=== PATIENT | female | born 1935 | race Caucasian/White ===

== ENCOUNTER → 2016-12-05 | Outpatient (CLI) | payer BC ==
[~2016-12-05] MED LIST: CALCTAB5 PO; CRAN1CAP15 PO; EXM/25 PO; LEVO-217 PO; MULT-506 PO; OMEG10007 PO; ZNTT/150 PO; fosamax
[2016-12-05 10:01] LABS: BLOOD UREA NITROGEN 9 mg/dl (7-18); GLUCOSE 94 mg/dl (70-99)
[2016-12-05 10:02] LABS: ALT/SGPT 24 U/L (12-78); BUN/CREATININE RATIO 13.1 (10-20); CALCIUM 8.9 mg/dl (8.5-10.1); CARBON DIOXIDE 27 mmol/L (21-32); CHLORIDE 95 mmol/L (98-107); CHOLESTEROL 216 mg/dl (0-200); CREATININE 0.65 mg/dl (0.60-1.20); POTASSIUM 3.7 mmol/L (3.5-5.1); SODIUM 132 mmol/L (136-145)
[2016-12-05 10:12] LABS: ALB/GLOB RATIO 1.2 (0.9-2); ALKALINE PHOSPHATASE 69 U/L (45-117); AST/SGOT 26 U/L (15-37); CHOLESTEROL/HDL RATIO 2.4; HDL CHOLESTEROL 90 mg/dl; LDL CHOLESTEROL CALCULATED 109 mg/dl; TRIGLYCERIDES 86 mg/dl (0-150); VERY LOW DENSITY LIPOPROT CALC 17 mg/dl
== END | disposition home or self-care (01) ==
LOC: C.LAB1850 08:37
PROVIDERS: ATTEND Family Medicine
DX: E78.5 Hyperlipidemia, unspecified (principal); E03.9 Hypothyroidism, unspecified

== ENCOUNTER → 2017-06-17 | Outpatient (CLI) | payer BC ==
[2017-06-17 16:29] LABS: BLOOD UREA NITROGEN 12 mg/dl (7-18); BUN/CREATININE RATIO 18.9 (10-20); CARBON DIOXIDE 28 mmol/L (21-32); CHLORIDE 98 mmol/L (98-107); CREATININE 0.61 mg/dl (0.60-1.20); GLUCOSE 100 mg/dl (70-99); POTASSIUM 3.7 mmol/L (3.5-5.1); SODIUM 132 mmol/L (136-145)
== END | disposition home or self-care (01) ==
LOC: C.LAB1850 14:07
PROVIDERS: ATTEND Nurse Practitioner
DX: C50.912 Malignant neoplasm of unspecified site of left female breast (principal); E87.1 Hypo-osmolality and hyponatremia

== ENCOUNTER → 2017-07-29 | Outpatient (CLI) | payer BC ==
--- NOTE | 2017-07-30 07:58 | MAMMOGRAPHY REPORT ---
UNILATERAL RIGHT DIGITAL SCREENING MAMMOGRAM TOMOSYNTHESIS WITH CAD: 07/29/2017 CLINICAL HISTORY: Asymptomatic. Personal history of breast cancer. TECHNIQUE: Right breast tomosynthesis in addition to standard 2D mammography was performed. Current yumiko oseguera was also evaluated with a Computer Aided Detection (CAD) system. COMPARISON: Comparison is made to exams dated: 05/24/2015 mammogram, 07/25/2016 mammogram, 05/23/2014 mammogram, 05/18/2013 mammogram, 05/15/2012 mammogram, and 05/14/2011 mammogram - [facility] enter. BREAST COMPOSITION: The tissue of the right breast is heterogeneously dense, which may obscure small masses. FINDINGS: There are stable benign calcifications in the right breast. There is a stable ribbon-shap ed biopsy marker clip in the right breast. No new suspicious mass, architectural distortion or cluste r of microcalcifications is seen. IMPRESSION: ACR BI-RADS CATEGORY 2: BENIGN There is no mammographic evidence of malignancy. A 1 year screening mammogram is recommended. The pa tient will receive written notification of the results. Approximately 10% of breast cancers are not detected with mammography. A negative mammographic report should not delay biopsy if a clinically suggestive mass is present. Nathaly Bynum M.D. ay/:07/29/2017 15:33:29 [employer] Teacher: Latisha MUÑOZ(R)(M), [facility] letter sent: Normal 1/2 BI-RADS Code: ACR BI-RADS Category 2: Benign
== END | disposition home or self-care (01) ==
LOC: C.MAMM 10:05
PROVIDERS: ATTEND Nurse Practitioner
DX: Z12.31 Encounter for screening mammogram for malignant neoplasm of breast (principal); Z85.3 Personal history of malignant neoplasm of breast

== ENCOUNTER → 2017-10-22 | Outpatient (CLI) | payer BC ==
--- NOTE | 2017-10-22 14:54 | DIAGNOSTIC IMAGING REPORT ---
THORACIC SPINE 3 VIEWS ROUTINE CLINICAL HISTORY: Thoracic spine pain COMPARISON STUDY: 01/01/2013 FINDINGS: There is a thoracolumbar scoliosis. There is a stable mild to moderate T9 compression deformity. There is a minor T6 compression deformity which is also chronic. There is disc space calcification at the T5-6 level. IMPRESSION: Scoliosis. Old thoracic compression deformities. No acute fractures identified. Electronically signed by: Sharath Huang M.D. 10/22/2017 2:53 PM Dictated Date/Time: 10/22/2017 2:51 PM
--- NOTE | 2017-10-22 14:58 | DIAGNOSTIC IMAGING REPORT ---
L-SPINE MIN 4 VIEWS ROUTINE CLINICAL HISTORY: Lumbar back pain. COMPARISON: None FINDINGS: Abdominal surgical clips are noted. There is mild levoscoliosis of the lumbar spine. Vertebral body heights are maintained. There is no fracture or suspicious lesion within the lumbar spine by radiography. There is moderate disc space narrowing with osteophytosis and vacuum disc phenomenon at L5-S1. Old T10 moderate compression fracture is noted. IMPRESSION: 1. No lumbar spine fracture or subluxation. 2. Mild levoscoliosis of the lumbar spine. 3. Moderate to severe degenerative disc disease at L5-S1. Moderate multilevel facet arthrosis. 4. Old T10 compression fracture. Electronically signed by: Kleber Mckee M.D. 10/22/2017 2:57 PM Dictated Date/Time: 10/22/2017 2:52 PM
== END | disposition home or self-care (01) ==
LOC: C.RADPV 14:22
PROVIDERS: ATTEND Family Medicine
DX: M54.5 Low back pain (principal); M54.6 Pain in thoracic spine; M41.9 Scoliosis, unspecified

== ENCOUNTER 2024-03-30 10:59 | Observation (INO) ==
--- NOTE | 2024-03-30 11:14 | Emergency Department Note ---
Impression & Plan Fall, Contusion of hip, right, Back contusion, Right rib fracture ED Provider Note NAME: DEANA MAN AGE: 88 SEX: F : 1935 ARRIVES VIA: Ambulance INFORMANT: Patient, EMS ED PROVIDER(S): Ibrahima Pagan DO CHIEF COMPLAINT: Fall HPI: The patient is an 88-year-old female who suffers from dementia who presented to the emergency department for a fall. The patient had a fall from a standing position yesterday but this was unwitnessed. The nursing of staff found her on the floor. They think she may have fallen against the wall and hit her back. The patient initially had no complaints. She was able to ambulate yesterday but today she cannot sit forward or ambulate. There is concerned she may have pain in her right hip. She arrived via BLS. There is no reported head injury nausea or vomiting. The patient does not take blood thinners. ROS: See above HPI for pertinent positives & negatives. A total of 10 systems reviewed and were otherwise negative. PAST MEDICAL HISTORY: See Below PAST SURGICAL HISTORY: See Below FAMILY HISTORY: See Below SOCIAL HISTORY: See Below HOME MEDICATIONS: See Below ALLERGIES: See Below VITALS: See Below PHYSICAL EXAMINATION: GENERAL: The patient is awake and alert. She appears anxious and uncomfortable. She appears to be in pain EYES: The conjunctivae are clear. The pupils are round and reactive. EARS, NOSE, MOUTH AND THROAT: The nose is without any evidence of any deformity. NECK: The neck is nontender and supple. RESPIRATORY: Normal respiratory effort is noted there is no evidence of wheezing rhonchi or rales CARDIOVASCULAR: Regular rate and rhythm noted there no murmurs rubs or gallops normal S1 normal S2. GASTROINTESTINAL: The abdomen is soft. Abdomen is nontender. BACK: Lower lumbar tenderness was noted to palpation. Range of motion does appear intact. MUSCULOSKELETAL/EXTREMITIES: There is no gross deformity of either lower extremity. There is significant pain with range of motion testing of the right hip. SKIN: There is no obvious evidence of any rash. There are no petechiae, pallor or cyanosis noted. Pulses are symmetric in both feet. NEUROLOGIC: Patient is awake alert and oriented to person and place only. Strength was symmetric. MEDICAL DECISION MAKING: The patient is an 88-year-old female who presented the emergency department for an evaluation of right hip pain. The patient had an unwitnessed fall yesterday. She suffers from advanced dementia and was unable to give much history. She did appear to have significant pain especially with palpation of the lower back as well as range of motion testing of the right hip. Radiographic studies were obtained. The patient was treated with pain medication. I discussed patient's laboratory and radiographic studies with her and her family. Ultimately no definite fracture was noted on radiographic studies. There was a questionable area on the right hip but after CAT scan this was proven to not be a true fracture. The patient was able to ambulate but still has significant difficulty and pain with ambulation. This reason I will discuss his case with the on-call [facility] hospitalist. Triage Nursing notes reviewed. Prior medical records reviewed Vital Signs: reviewed and remarkable for no significant abnormalities Differential diagnosis: Fracture, dislocation, contusion, intra-abdominal, pneumothorax, intrathoracic, intracranial, neurologic, compartment syndrome, rhabdomyolysis, as well as other pathologies. ER treatment provided: See below Diagnostics interpreted by me: ECG: EKG was obtained in the emergency department. My interpretation is normal sinus rhythm at 75 bpm. There is no ectopy. There is no acute ST segment abnormalities noted. This was compared to a tracing from 2022. No changes were noted. Cardiac Monitoring: An order was placed for continuous cardiac monitoring. The monitor shows a rate of 71 bpm with sinus rhythm. Laboratory studies: As stated above and show below. Imaging studies: See below. Radiographic imaging was reviewed by myself Consultation(s): I discussed this case with Dr. Sims who is on-call for the [facility]ist group. Past Med/Surg History Problem List (Updated 03/30/24 @ 17:20 by Ibrahima Pagan DO) Right rib fracture (Acute) Back contusion (Acute) Contusion of hip, right (Acute) Fall (Acute) Ulcerative colitis (Chronic) Thoracic back pain Seasonal allergies Myalgia and myositis Lesion of lip Joint pain, knee Impacted cerumen of both ears Hyponatremia Fatigue Anemia Routine health maintenance (Chronic) Encounter for pre-operative examination (Acute) Low back pain Memory impairment Rectal bleeding Cerumen impaction Upper extremity weakness Physical deconditioning Impaired mobility and ADLs Osteoarthritis of shoulders, bilateral Impingement syndrome of right shoulder Impingement syndrome, shoulder, left Medical History Dementia Arthritis Trouble swallowing Barretts esophagus Benign positional vertigo Chronic reflux esophagitis Hyperlipidemia Hypothyroidism Osteoporosis Colon cancer (~2004) HX 2005/HX RESECTION Breast cancer (~2008) HX 2009/LEFT MASTECTOMY Surgical History History of endoscopy History of colonoscopy History of blepharoplasty History of colon surgery Part of colon removed History of mastectomy LEFT History of foot surgery Family History Aunt Breast cancer Other No pertinent family history Denies family history of Ovarian cancer Prostate cancer Myocardial infarction Colorectal cancer Social History Smoking Status: Unknown if ever smoked Second Hand Exposure: No; Do You Dip or Chew Tobacco: No; Hx Alcohol Use: No Hx Substance Use: No Preferred Language: Surinamese Communication Ability: Effective Communication Ability Comment: DAUGHTERZHOU DOES PAT PHONE INTERVIEW (POA)/PT HAS DEMENTIA Visual Impairment: Limited Hearing Ability: Normal Sr Account Executive Required: No Beliefs That Will Affect Care: None marital status: / Current Living Situation: Alone current occupational status: retired How many Children do You have: 3 Feels Safe at Home: Yes Childhood Exposure to Second-Hand Smoke: Yes Diet: regular caffeine: No during the past year weight has: remained stable Dental Care, Regularly: Yes Physical Activity Frequency: Daily Physical Activity Frequency Comment: Walking Seatbelt Use: always Sunscreen Use: Yes Assistive Devices: Other Allergies Allergies Allergy/AdvReac Type Severity Reaction Status Date / Time shellfish derived Allergy Unknown Unknown Verified 03/30/24 12:12 oxycodone AdvReac Unknown N&V Verified 03/30/24 12:12 Home Meds Home Medications Medication Instructions Recorded Confirmed escitalopram oxalate 5 mg tablet 5 mg PO DAILY 03/30/24 03/30/24 famotidine 20 mg tablet 20 mg PO DAILY 03/30/24 03/30/24 levothyroxine 75 mcg tablet 75 mcg PO DAILY 03/30/24 03/30/24 meloxicam 7.5 mg tablet 7.5 mg PO DAILY 03/30/24 03/30/24 omeprazole 20 mg capsule,delayed 20 mg PO DAILY 03/30/24 03/30/24 release Results & Data (ED) Vital Signs Vital Signs - 24 hr 03/30/24 11:23 03/30/24 11:24 03/30/24 11:53 Temperature 36.6 C Temperature Source Oral Pulse Rate 77 85 Pulse Rate [Left Apical] 71 Respiratory Rate 21 17 Respiratory Effort / Characteristics Non-Labored Spontaneous Non-Labored Spontaneous Respiratory Depth Normal Normal Respiratory Pattern Regular Regular Blood Pressure 146/81 H Blood Pressure [Right Arm] 140/76 Blood Pressure Mean 102 Blood Pressure Mean [Right Arm] 97 Pulse Oximetry 99 98 Oxygen Delivery Method Room Air Room Air Sepsis Recent Fever Within 48 Hours No Sepsis New/Unexplained Change in Mental Status N/A Sepsis Action Taken by Nursing No Action Required 03/30/24 12:00 03/30/24 12:42 03/30/24 13:30 Temperature Temperature Source Pulse Rate 71 68 Pulse Rate [Left Apical] Respiratory Rate 21 16 Respiratory Effort / Characteristics Respiratory Depth Respiratory Pattern Blood Pressure 127/72 Blood Pressure [Right Arm] 139/67 Blood Pressure Mean 90 Blood Pressure Mean [Right Arm] 91 Pulse Oximetry 94 96 Oxygen Delivery Method Room Air Room Air Sepsis Recent Fever Within 48 Hours Sepsis New/Unexplained Change in Mental Status Sepsis Action Taken by Nursing 03/30/24 13:54 03/30/24 13:57 03/30/24 15:18 Temperature Temperature Source Pulse Rate 71 71 Pulse Rate [Left Apical] Respiratory Rate 21 19 Respiratory Effort / Characteristics Respiratory Depth Respiratory Pattern Blood Pressure 128/81 Blood Pressure [Right Arm] Blood Pressure Mean 104 Blood Pressure Mean [Right Arm] Pulse Oximetry 100 98 Oxygen Delivery Method Room Air Room Air Sepsis Recent Fever Within 48 Hours Sepsis New/Unexplained Change in Mental Status Sepsis Action Taken by Nursing 03/30/24 15:27 03/30/24 16:00 03/30/24 16:30 Temperature Temperature Source Pulse Rate 87 79 77 Pulse Rate [Left Apical] Respiratory Rate 19 24 Respiratory Effort / Characteristics Respiratory Depth Respiratory Pattern Blood Pressure 110/68 115/66 Blood Pressure [Right Arm] Blood Pressure Mean 82 82 Blood Pressure Mean [Right Arm] Pulse Oximetry 98 Oxygen Delivery Method Room Air Sepsis Recent Fever Within 48 Hours Sepsis New/Unexplained Change in Mental Status Sepsis Action Taken by Skilled Nursing Medications Current Medication List: was personally reviewed by me Laboratory Data Attestation: I reviewed the patient's lab results. 03/30/24 11:16 03/30/24 11:16 Lab Results 03/30/24 Range/Units 11:16 WBC 9.58 (4.8-10.8) K/ul RBC 4.40 (4.20-5.40) M/uL Hgb 11.9 L (12.0-16.0) g/dl Hct 37.2 (37.0-47.0) % MCV 84.5 (80.0-100.0) fL MCH 27.0 (25.0-34.0) pg MCHC 32.0 (32.0-36.0) g/dL RDW Std Deviation 40.3 (36.4-46.3) fL RDW Coeff of [place] 13.1 (11.5-14.5) % Plt Count 356 (130-400) K/uL MPV 9.7 (9.4-12.4) fL Immature Gran % (Auto) 0.3 % Neut % (Auto) 58.3 % Lymph % (Auto) 30.3 % Pope % (Auto) 8.6 % Eos % (Auto) 2.0 % Baso % (Auto) 0.5 % Neut # (Auto) 5.59 (1.40-6.50) K/uL Lymph # (Auto) 2.90 (1.20-3.40) K/uL Pope # (Auto) 0.82 H (0.11-0.59) K/uL Eos # (Auto) 0.19 (0.00-0.50) K/uL Baso # (Auto) 0.05 (0.00-0.20) K/uL Immature Gran # (Auto) 0.03 (0.01-0.20) K/uL PT 10.8 (9.0-12.0) Seconds INR 1.0 (0.9-1.1) APTT 27 (21-31) Seconds PTT Ratio 1.0 Sodium 135 L (136-145) mmol/L Potassium 4.0 (3.5-5.1) mmol/L Chloride 101 (98-107) mmol/L Carbon Dioxide 25 (21-32) mmol/L Anion Gap 9 (3-11) BUN 18 (6-23) mg/dl Creatinine 0.68 (0.6-1.2) mg/dl Est Cr Clr Drug Dosing Not Reportable Est GFR ( Amer) 91.8 ml/min Est GFR (Non-Af Amer) 79.2 ml/min BUN/Creatinine Ratio 26.5 H (10-20) Glucose 106 H (70-99(Fasting)) mg/dl Calcium 9.1 (8.6-10.3) mg/dl Total Bilirubin 0.5 (0.2-1.0) mg/dl AST 16 (13-39) U/L ALT 8 (7-52) U/L Alkaline Phosphatase 96 (34-104) U/L Troponin I High Sens 11.0 (0-14) pg/ml Total Protein 7.2 (6.0-8.3) gm/dl Albumin 4.1 (3.4-5.0) gm/dl Globulin 3.1 (2.5-4.0) gm/dl Albumin/Globulin Ratio 1.3 (0.9-2) Lipase 33 (11-82) U/L Administered Medications Discontinued Medications Acetaminophen (Acetaminophen 500 Mg Tab) 1,000 mg PO NOW STA Stop: 03/30/24 14:38 Last Admin: 03/30/24 15:12 Dose: 1,000 mg Documented By: [facility] Fentanyl Citrate (Fentanyl Citrate Pf 100 Mcg/2 Ml Vial) 25 mcg IV Q15M PRN PRN Reason: Pain Stop: 04/13/24 11:07 Last Admin: 03/30/24 11:48 Dose: 25 mcg Documented By: [facility] Lidocaine (Lidocaine 5% 1 Patch) 1 patch TD NOW STA Stop: 03/30/24 14:38 Last Admin: 03/30/24 15:12 Dose: 1 patch Documented By: [facility] Ondansetron HCl (Ondansetron Inj 2 Mg/Ml 2 Ml Vial) 4 mg IV NOW STA Stop: 03/30/24 11:09 Last Admin: 03/30/24 11:48 Dose: 4 mg Documented By: [facility] Imaging Data Attestation: I personally reviewed and interpreted this imaging study as follows: My Impression: 1 view chest x-ray was obtained in the emergency department. My interpretation is no free air or definite infiltrate, final report below. CT of the brain was obtained in the emergency department. My interpretation is no intracranial hemorrhage or mass effect, final report below. X-ray of the right hip and pelvis was obtained. My interpretation is questionable fracture of the right subcapital region on the right hip, final report below. Radiologist's Impression: Cervical Spine CT 03/30/24 11:08 CT SCAN OF THE CERVICAL SPINE CLINICAL HISTORY: Fall. COMPARISON STUDY: Cervical spine radiographs dated 02/12/2022. TECHNIQUE: CT scan of the cervical spine is performed from the skull base to the upper thoracic spine. Images are reviewed in the axial, sagittal, and coronal planes. IV contrast was not administered for this examination. A dose lowering technique was utilized adhering to the principles of ALARA. CT DOSE: 2197.14 mGy.cm FINDINGS: Skeletal structures: The skeletal structures are osteopenic. There is no evidence of fracture or subluxation involving the cervical spine. Vertebral body height and alignment are maintained. There is straightening of the cervical lordosis. Anterior osteophytes are seen throughout. The odontoid process and lateral masses are intact. The atlantoaxial articulation is preserved no significant advanced productive degenerative change. The spinous processes appear intact. There is moderate multilevel cervical spondylosis. Uncovertebral and facet arthropathy contribute to neural foraminal narrowing at several levels. Intervertebral discs: There is moderate to severe disc space narrowing at C5-C6 and C6-C7. End plate sclerosis is noted C5-C6. Mild narrowing is seen at the remaining cervical levels. Central canal: Widely patent. Soft tissues: The prevertebral and paraspinous soft tissues are within normal limits. There is moderate atherosclerotic calcification of the left carotid bulb. Calvarium: The visualized calvarium at the skull base appears intact. Brain parenchyma: Partially visualized brain parenchyma at the skull base is within normal limits. Sinuses and mastoids: The visualized paranasal sinuses are clear. The mastoid air cells are well pneumatized. Lung apices: Clear as visualized. IMPRESSION: 1. There is no evidence of fracture or subluxation involving the cervical spine. 2. Osteopenia and spondylotic change as above. ACT 112: Negative or not required by law. Electronically signed by: Luis F Regan M.D. 03/30/2024 12:01 PM Chest X-Ray 03/30/24 11:08 XR chest 1V portable CLINICAL HISTORY: Chest pain, nonspecific TECHNIQUE: Single frontal radiograph of the chest was obtained. Comparison: Comparison is made to chest radiograph 02/10/2023 FINDINGS: No lines and tubes are seen. The cardiomediastinal silhouette is normal. Lungs are underinflated but clear. No evidence of pleural effusion or pneumothorax. IMPRESSION: No acute chest disease. ACT 112: Negative or not required by law. Electronically signed by: Gordon Evans M.D. 03/30/2024 11:[address] 03/30/24 11:08 CT head/brain wo con CLINICAL HISTORY: fall Technique: Contiguous axial CT images of the head were acquired from the base of the skull to the vertex without intravenous contrast administration. Images were viewed in brain, subdural and bone windows. Automated dose lowering techniques and/or adjustment according to patient size were utilized for this exam. Comparison: Comparison is made to CT head 01/25/2019 Findings: Areas of decreased attenuation are present in the periventricular and subcortical white matter bilaterally consistent with small vessel ischemic disease. Generalized cerebral atrophy with commensurate enlargement of the ventricles, sulci, and cisterns is also present. There is no acute intracranial hemorrhage or evidence of acute territorial infarction. No shift of the midline structures, mass effect, or extra-axial abnormalities are shown. Atherosclerotic calcifications are present in the intracranial segments of the internal carotid arteries. Imaged portions of the paranasal sinuses and mastoid air cells are clear. The orbits appear normal. There are no acute fractures of the calvaria or scalp swelling. Impression: No acute intracranial hemorrhage, no evidence of acute territorial infarction or other acute intracranial disease process. ACT 112: Negative or not required by law. Electronically signed by: Gordon Evans M.D. 03/30/2024 11:53 AM Hip/Pelvis X-Ray 03/30/24 11:08 XR hip RT 2V w pelvis CLINICAL HISTORY: Fall. COMPARISON: Pelvis and right hip radiographs February 15, 2019. FINDINGS: Sacroiliac joints and symphysis pubis are intact. There is no proximal left femoral fracture. There is slight foreshortening of the right femoral neck. Possible cortical irregularity of the right femoral neck: Crosstable lateral projection is noted. IMPRESSION: Slight foreshortening of the right femoral neck. This is likely technical. However, a right hip CT is recommended to exclude a nondisplaced impacted right femoral neck fracture. ACT 112: Negative or not required by law. Electronically signed by: Kleber Mckee M.D. 03/30/2024 11:[address] 03/30/24 11:08 CT lumbar spine wo con CLINICAL HISTORY: fall TECHNIQUE: Multidetector row helical CT of the lumbar spine was performed without administration of intravenous contrast. Coronal and sagittal reformations were obtained. Automated dose lowering techniques and/or adjustment according to patient size were utilized for this exam. Comparison: Comparison is made to lumbar spine radiographs 07/11/2020 FINDINGS: For counting purposes, the last complete intervertebral disc space is considered L5-S1. No acute fractures are identified. Vertebral body heights and disk spaces are well maintained. Vertebral body alignment is within normal limits. Hypodense lesions and cysts are seen in the right greater than left kidney compatible with cysts and hemorrhagic/proteinaceous cysts. Vascular calcifications are seen. IMPRESSION: No evidence of acute bony injury. ACT 112: Negative or not required by law. Electronically signed by: Gordon Evans M.D. 03/30/2024 11:[address] 03/30/24 11:33 CT hip RT wo con CLINICAL HISTORY: fall TECHNIQUE: Multidetector row helical CT of the right hip was performed without intravenous contrast. Coronal and sagittal reformations were obtained. Automated dose lowering techniques and/or adjustment according to patient size were utilized for this examination. CT DOSE: 411.27 mGy.cm Comparison: Right hip radiograph 11/30/2023 FINDINGS: The osseous structures are without fracture or dislocation. Degenerative changes are seen in the joints. No joint effusion is seen. The soft tissues are unremarkable. IMPRESSION: No acute abnormality. Previously noted foreshortening was likely artifactual. ACT 112: Negative or not required by law. Electronically signed by: Gordon Evans M.D. 03/30/2024 1:04 PM Abdomen/Pelvis CT 03/30/24 14:48 CT OF THE ABDOMEN AND PELVIS WITHOUT CONTRAST CLINICAL HISTORY: Fall, right sided rib/back pain COMPARISON STUDY: Pelvis and right hip radiographs performed earlier today. Right hip CT performed earlier today. TECHNIQUE: Axial images of the abdomen and pelvis were obtained without IV contrast. Images were reviewed in the axial, sagittal, and coronal planes. Automated exposure control was utilized for the study. A dose lowering technique was utilized adhering to the principles of ALARA. FINDINGS: Please note that the chest CT will be reported separately. Acute fractures of the posterior right seventh, eighth and ninth ribs are noted. The right ninth rib fracture is displaced. There is a trace right hemothorax. A lobulated subpleural 1.5 cm left lower lobe nodule on image 6 is present. Findings are better depicted on the chest CT which will be reported separately. There is a small hiatal hernia. No hemoperitoneum or pneumoperitoneum is present. Solid abdominal viscera suboptimally assessed by CT. No evidence for traumatic injury to the liver, spleen, adrenal glands, kidneys or pancreas. Hyperdense right renal lesions are suboptimally assessed on unenhanced CT but favor hyperdense cyst. There is no evidence for a bowel obstruction. Multifocal wall thickening of the ascending colon and descending colon is noted with minimal pericolonic stranding. There are numerous mildly enlarged pericolonic lymph nodes. These measure up to 1.3 x 0.9 cm. There are prominent mesenteric lymph nodes. No acute lumbar spine, pelvic or hip fracture is identified. IMPRESSION: 1. No acute traumatic findings within the abdomen or pelvis on unenhanced exam. 2. Acute fractures of the posterior right seventh, eighth and ninth ribs with a trace right hemothorax. 3. Lobulated subpleural 1.5 left lower lobe pulmonary nodule. This is indeterminate. A follow-up chest CT in 6 months is recommended. 4. Multifocal wall thickening of the colon, predominantly involving the ascending colon and descending colon with colonic stranding and enlarged pericolonic lymph nodes. Given long segment distribution, the findings may reflect a colitis. However, a neoplastic etiology could appear similar. A short- term follow-up CT of the abdomen and pelvis in one month is recommended. Alternatively, colonoscopy could be performed. ACT 112: Positive. There are findings on this exam that require communication between the performing entity and the patient following Patient Test Result Information Act ([place] Act 112) guidelines. Electronically signed by: Kleber Mckee M.D. 03/30/2024 4:[address] 03/30/24 14:48 CT chest diagnostic wo con, CT thoracic spine wo con CLINICAL HISTORY: Fall, right sided rib/back pain TECHNIQUE: Multidetector row helical CT of the chest was performed. Coronal and sagittal reformations were obtained. Automated dose lowering techniques and/or adjustment according to patient size were utilized for this exam. Dedicated images of the thoracic spine were obtained. CT DOSE: 1235.96 mGy.cm Comparison: None available at the time of this dictation. FINDINGS: Lungs and pleura: Atelectasis versus scarring is seen in the dependent portions of the lungs. Tree in bud nodules are in the right upper lobe and there is a cluster of nodules in the left lower lobe as well. Possible trace right hemothorax. Heart and pericardium: Heart size is normal. No pericardial effusion. Vessels: Mild atherosclerotic changes in the aorta and coronary arteries. Pulmonary trunk measures 31 mm in diameter. Mediastinum and lily: Subcentimeter lymph nodes are seen. Chest wall and lower neck: There is a 16 mm left thyroid nodule. Abdomen: For findings below the diaphragm, please refer to CT of the abdomen dated the same. Bones: Right seventh and eighth posterior rib fractures are seen. IMPRESSION: 1. Right posterior seventh and eighth rib fractures are seen with trace hemothorax. No pneumothorax or other acute abnormalities are seen. 2. Nodules are seen as above which may represent infectious/inflammatory process. ACT 112: Negative or not required by law. Electronically signed by: Gordon Evans M.D. 03/30/2024 4:[address] 03/30/24 14:48 CT chest diagnostic wo con, CT thoracic spine wo con CLINICAL HISTORY: Fall, right sided rib/back pain TECHNIQUE: Multidetector row helical CT of the chest was performed. Coronal and sagittal reformations were obtained. Automated dose lowering techniques and/or adjustment according to patient size were utilized for this exam. Dedicated images of the thoracic spine were obtained. CT DOSE: 1235.96 mGy.cm Comparison: None available at the time of this dictation. FINDINGS: Lungs and pleura: Atelectasis versus scarring is seen in the dependent portions of the lungs. Tree in bud nodules are in the right upper lobe and there is a cluster of nodules in the left lower lobe as well. Possible trace right hemothorax. Heart and pericardium: Heart size is normal. No pericardial effusion. Vessels: Mild atherosclerotic changes in the aorta and coronary arteries. Pulmonary trunk measures 31 mm in diameter. Mediastinum and lily: Subcentimeter lymph nodes are seen. Chest wall and lower neck: There is a 16 mm left thyroid nodule. Abdomen: For findings below the diaphragm, please refer to CT of the abdomen dated the same. Bones: Right seventh and eighth posterior rib fractures are seen. IMPRESSION: 1. Right posterior seventh and eighth rib fractures are seen with trace hemothorax. No pneumothorax or other acute abnormalities are seen. 2. Nodules are seen as above which may represent infectious/inflammatory process. ACT 112: Negative or not required by law. Electronically signed by: Gordon Evans M.D. 03/30/2024 4:31 PM Discharge Plan Visit Data Chief Complaint: Fall ED Provider: Ibrahima Pagan Discharge Problem: Fall, Contusion of hip, right, Back contusion, Right rib fracture Patient Disposition: Being Evaluated by Hospitalist Discharge Instructions Interventions: ED Discharge Assessment Last Done: 03/30/24 16:42 Forms Stand Alone Forms: My [facility] TapFwd Prescriptions Prescriptions: No Action levothyroxine 75 mcg tablet 75 mcg PO DAILY meloxicam 7.5 mg tablet 7.5 mg PO DAILY famotidine 20 mg tablet 20 mg PO DAILY omeprazole 20 mg capsule,delayed release(DR/EC) 20 mg PO DAILY escitalopram oxalate 5 mg tablet 5 mg PO DAILY Referrals Referrals: Valentina Shaffer MD [Primary Care Provider] - Discharge Problem: Fall Qualifiers: Encounter type: initial encounter Qualified Code(s): W19.XXXA - Unspecified fall, initial encounter Contusion of hip, right Qualifiers: Encounter type: initial encounter Qualified Code(s): S70.01XA - Contusion of right hip, initial encounter Back contusion Qualifiers: Encounter type: initial encounter Laterality: unspecified laterality Qualified Code(s): S20.229A - Contusion of unspecified back wall of thorax, initial encounter Right rib fracture Qualifiers: Encounter type: initial encounter Rib fracture type: multiple ribs Fracture type: closed Qualified Code(s): S22.41XA - Multiple fractures of ribs, right side, initial encounter for closed fracture
--- NOTE | 2024-03-30 11:33 | XRay Report ---
XR hip RT 2V w pelvis CLINICAL HISTORY: Fall. COMPARISON: Pelvis and right hip radiographs February 15, 2019. FINDINGS: Sacroiliac joints and symphysis pubis are intact. There is no proximal left femoral fractu re. There is slight foreshortening of the right femoral neck. Possible cortical irregularity of the r ight femoral neck: Crosstable lateral projection is noted. IMPRESSION: Slight foreshortening of the right femoral neck. This is likely technical. However, a rig ht hip CT is recommended to exclude a nondisplaced impacted right femoral neck fracture. ACT 112: Negative or not required by law. Electronically signed by: Kleber Mckee M.D. 03/30/2024 11:31 AM
--- NOTE | 2024-03-30 11:40 | XRay Report ---
XR chest 1V portable CLINICAL HISTORY: Chest pain, nonspecific TECHNIQUE: Single frontal radiograph of the chest was obtained. Comparison: Comparison is made to chest radiograph 02/10/2023 FINDINGS: No lines and tubes are seen. The cardiomediastinal silhouette is normal. Lungs are underinflated but clear. No evidence of pleural effusion or pneumothorax. IMPRESSION: No acute chest disease. ACT 112: Negative or not required by law. Electronically signed by: Gordon Evans M.D. 03/30/2024 11:39 AM
[2024-03-30 11:41] LABS: Basophils # (auto) 0.05 K/uL (0.00-0.20); Basophils % (auto) 0.5 %; Eosinophils # (auto) 0.19 K/uL (0.00-0.50); Hematocrit (blood only) 37.2 % (37.0-47.0); Hemoglobin 11.9 g/dl (12.0-16.0); Immature Granulocytes # (auto) 0.03 K/uL (0.01-0.20); Immature Granulocytes % (auto) 0.3 %; Lymphocytes % (auto) 30.3 %; Mean Corpuscular Volume 84.5 fL (80.0-100.0); Mean Platelet Volume 9.7 fL (9.4-12.4); Monocytes # (auto) 0.82 K/uL (0.11-0.59); Monocytes % (auto) 8.6 %; Neutrophils # (auto) 5.59 K/uL (1.40-6.50); Neutrophils % (auto) 58.3 %; Platelet Count 356 K/uL (130-400); RDW Coefficient of Variation 13.1 % (11.5-14.5); RDW Standard Deviation 40.3 fL (36.4-46.3); White Blood Count 9.58 K/ul (4.8-10.8)
[2024-03-30] MEDS: fentaNYL citrate PF 100 MCG/2 ML VIAL IV PRN (11:48)
[2024-03-30] MEDS: ONDANSETRON INJ 2 MG/ML 2 ML VIAL IV STA (11:48)
--- NOTE | 2024-03-30 11:53 | CT Scan Report ---
CT lumbar spine wo con CLINICAL HISTORY: fall TECHNIQUE: Multidetector row helical CT of the lumbar spine was performed without administration of i ntravenous contrast. Coronal and sagittal reformations were obtained. Automated dose lowering techniq ues and/or adjustment according to patient size were utilized for this exam. Comparison: Comparison is made to lumbar spine radiographs 07/11/2020 FINDINGS: For counting purposes, the last complete intervertebral disc space is considered L5-S1. No acute fractures are identified. Vertebral body heights and disk spaces are well maintained. Verteb ral body alignment is within normal limits. Hypodense lesions and cysts are seen in the right greater than left kidney compatible with cysts and hemorrhagic/proteinaceous cysts. Vascular calcifications are seen. IMPRESSION: No evidence of acute bony injury. ACT 112: Negative or not required by law. Electronically signed by: Gordon Evans M.D. 03/30/2024 11:52 AM
--- NOTE | 2024-03-30 11:54 | CT Scan Report ---
CT head/brain wo con CLINICAL HISTORY: fall Technique: Contiguous axial CT images of the head were acquired from the base of the skull to the nilam temi without intravenous contrast administration. Images were viewed in brain, subdural and [facility]. Automated dose lowering techniques and/or adjustment according to patient size were utilized for this exam. Comparison: Comparison is made to CT head 01/25/2019 Findings: Areas of decreased attenuation are present in the periventricular and subcortical white matter bilate rally consistent with small vessel ischemic disease. Generalized cerebral atrophy with commensurate e nlargement of the ventricles, sulci, and cisterns is also present. There is no acute intracranial hem orrhage or evidence of acute territorial infarction. No shift of the midline structures, mass effect, or extra-axial abnormalities are shown. Atherosclerotic calcifications are present in the intracran ial segments of the internal carotid arteries. Imaged portions of the paranasal sinuses and mastoid air cells are clear. The orbits appear normal. There are no acute fractures of the calvaria or scalp swelling. Impression: No acute intracranial hemorrhage, no evidence of acute territorial infarction or other acute intracra nial disease process. ACT 112: Negative or not required by law. Electronically signed by: Gordon Evans M.D. 03/30/2024 11:53 AM
[2024-03-30 12:04] LABS: Alanine Aminotransferase 8 U/L (7-52); Albumin Globulin Ratio 1.3 (0.9-2); Albumin Level 4.1 gm/dl (3.4-5.0); Alkaline Phosphatase 96 U/L (34-104); Anion Gap 9 (3-11); Aspartate Aminotransferase 16 U/L (13-39); BUN Creatinine Ratio 26.5 (10-20); Bilirubin,Total 0.5 mg/dl (0.2-1.0); Blood Urea Nitrogen 18 mg/dl (6-23); Calcium 9.1 mg/dl (8.6-10.3); Carbon Dioxide 25 mmol/L (21-32); Chloride 101 mmol/L (98-107); Est GFR (African American) 91.8 ml/min; Est GFR (Non-African American) 79.2 ml/min; Globulin 3.1 gm/dl (2.5-4.0); Glucose 106 mg/dl (70-99(Fasting)); Lipase 33 U/L (11-82); Sodium 135 mmol/L (136-145); Total Protein 7.2 gm/dl (6.0-8.3)
--- NOTE | 2024-03-30 12:04 | CT Scan Report ---
CT SCAN OF THE CERVICAL SPINE CLINICAL HISTORY: Fall. COMPARISON STUDY: Cervical spine radiographs dated 02/12/2022. TECHNIQUE: CT scan of the cervical spine is performed from the skull base to the upper thoracic spine . Images are reviewed in the axial, sagittal, and coronal planes. IV contrast was not administered fo r this examination. A dose lowering technique was utilized adhering to the principles of ALARA. CT DOSE: 2197.14 mGy.cm FINDINGS: Skeletal structures: The skeletal structures are osteopenic. There is no evidence of fracture or subl uxation involving the cervical spine. Vertebral body height and alignment are maintained. There is s traightening of the cervical lordosis. Anterior osteophytes are seen throughout. The odontoid process and lateral masses are intact. The atlantoaxial articulation is preserved no significant advanced pr oductive degenerative change. The spinous processes appear intact. There is moderate multilevel cervi albert spondylosis. Uncovertebral and facet arthropathy contribute to neural foraminal narrowing at pradip ral levels. Intervertebral discs: There is moderate to severe disc space narrowing at C5-C6 and C6-C7. End plate sclerosis is noted C5-C6. Mild narrowing is seen at the remaining cervical levels. Central canal: Widely patent. Soft tissues: The prevertebral and paraspinous soft tissues are within normal limits. There is modera te atherosclerotic calcification of the left carotid bulb. Calvarium: The visualized calvarium at the skull base appears intact. Brain parenchyma: Partially visualized brain parenchyma at the skull base is within normal limits. Sinuses and mastoids: The visualized paranasal sinuses are clear. The mastoid air cells are well pneu matized. Lung apices: Clear as visualized. IMPRESSION: 1. There is no evidence of fracture or subluxation involving the cervical spine. 2. Osteopenia and spondylotic change as above. ACT 112: Negative or not required by law. Electronically signed by: Luis F Regan M.D. 03/30/2024 12:01 PM
[2024-03-30 12:07] LABS: Partial Thromboplastin Time 27 Seconds (21-31); Prothrombin Time 10.8 Seconds (9.0-12.0)
--- NOTE | 2024-03-30 12:45 | Electrocardiogram Report ---
Test Reason : Blood Pressure : / mmHG Vent. Rate : 075 BPM Atrial Rate : 075 BPM P-R Int : 158 ms QRS Dur : 076 ms QT Int : 414 ms P-R-T Axes : 069 048 068 degrees QTc Int : 462 ms Normal sinus rhythm Normal ECG When compared with ECG of 10-FEB-2023 17:50, Premature supraventricular complexes are no longer Present Confirmed by Mejia French ([id number]) on 03/30/2024 12:44:51 PM Referred By: REFERRED SELF Confirmed By:Mejia French
--- NOTE | 2024-03-30 13:07 | CT Scan Report ---
CT hip RT wo con CLINICAL HISTORY: fall TECHNIQUE: Multidetector row helical CT of the right hip was performed without intravenous contrast. Coronal and sagittal reformations were obtained. Automated dose lowering techniques and/or adjustment according to patient size were utilized for this examination. CT DOSE: 411.27 mGy.cm Comparison: Right hip radiograph 11/30/2023 FINDINGS: The osseous structures are without fracture or dislocation. Degenerative changes are seen in the join ts. No joint effusion is seen. The soft tissues are unremarkable. IMPRESSION: No acute abnormality. Previously noted foreshortening was likely artifactual. ACT 112: Negative or not required by law. Electronically signed by: Gordon Evans M.D. 03/30/2024 1:04 PM
--- NOTE | 2024-03-30 14:56 | History & Physical Report ---
Date of Service March 30, 2024 Assessment & Plan (1) Back contusion: Plan: Assessment: 1. Moderate to severe back pain status post fall. The patient had negative CTs of the head, cervical spine, lumbar spine, hip, and plain film x-rays of the chest-all of which were negative for acute injury. However as described above the patient's pain appears to be posterior rib regions 5 through [address] of the chest abdomen pelvis and thoracic spine. Those tests been ordered stat and are pending at the time of this dictation. Will consult PT and OT pending CAT scan results. Falls precautions. 2. Dementia fairly advanced. 3. History of ulcerative colitis with no evidence of flare. 4. Osteoarthritis. 5. Depression. 6. GERD with a history of Hernandez's esophagus. 7. History of hypothyroidism. Plan: As discussed above. Please refer to orders for further planning. Will use some lidocaine patch and acetaminophen now for pain control we will add some oral oxycodone if needed. We will try to avoid narcotics if possible given the patient's memory impairment. History of Present Illness Chief Complaint: Back pain, status post fall yesterday. Primary Care Provider: Valentina Shaffer MD This is an 88-year-old female who [facility] at a [facility] in a dementia unit. She apparently had a fall backwards from a standing position yesterday. She was able to ambulate somewhat yesterday typically ambulates independently. Family at the bedside. However today only take 1-2 steps with two-person assist and wheeled walker. She was sent to the ER from the [facility] for further evaluation and treatment initial reports was with right hip pain. The patient had plain film x-rays of the chest, CAT scans of the head and cervical spine lumbar spine and right hip. All of the symptoms were negative for acute findings. We are called admit the patient for further evaluation and treatment for refractory pain. The patient had IV fentanyl and IV Zofran in the ER. The patient is accompanied by her 2 daughters at the bedside at the time of my evaluation they report that they are code power of civil attorney's. They confirm his CODE STATUS is a DO NOT RESUSCITATE. On my evaluation as described on the physical exam this patient's pain is in the right mid rib region from approximately posterior ribs 5 through 10. It is reproducible with palpation. When I sit her up to auscultate her posterior lung mc she shakes with severe pain and becomes tearful and again this is partially reproducible with palpation with no midline tenderness. Regarding the stat CTs of the thoracic spine, chest, and the abdomen pelvis. Concern for occult rib injury on the right posterior Allergies Allergy/AdvReac Type Severity Reaction Status Date / Time shellfish derived Allergy Unknown Unknown Verified 03/30/24 12:12 oxycodone AdvReac Unknown N&V Verified 03/30/24 12:12 Home Medications Medication Instructions Recorded Confirmed Type escitalopram oxalate 5 mg tablet 5 mg PO DAILY 03/30/24 03/30/24 History famotidine 20 mg tablet 20 mg PO DAILY 03/30/24 03/30/24 History levothyroxine 75 mcg tablet 75 mcg PO DAILY 03/30/24 03/30/24 History meloxicam 7.5 mg tablet 7.5 mg PO DAILY 03/30/24 03/30/24 History omeprazole 20 mg capsule,delayed 20 mg PO DAILY 03/30/24 03/30/24 History release Past Med/Surg History Problem List (Updated 03/30/24 @ 14:37 by Ibrahima Pagan DO) Back contusion (Acute) Contusion of hip, right (Acute) Fall (Acute) Ulcerative colitis (Chronic) Thoracic back pain Seasonal allergies Myalgia and myositis Lesion of lip Joint pain, knee Impacted cerumen of both ears Hyponatremia Fatigue Anemia Routine health maintenance (Chronic) Encounter for pre-operative examination (Acute) Low back pain Memory impairment Rectal bleeding Cerumen impaction Upper extremity weakness Physical deconditioning Impaired mobility and ADLs Osteoarthritis of shoulders, bilateral Impingement syndrome of right shoulder Impingement syndrome, shoulder, left Medical History Dementia Arthritis Trouble swallowing Barretts esophagus Benign positional vertigo Chronic reflux esophagitis Hyperlipidemia Hypothyroidism Osteoporosis Colon cancer (~2004) HX 2005/HX RESECTION Breast cancer (~2008) HX 2009/LEFT MASTECTOMY Surgical History History of endoscopy History of colonoscopy History of blepharoplasty History of colon surgery Part of colon removed History of mastectomy LEFT History of foot surgery Family History Aunt Breast cancer Other No pertinent family history Denies family history of Ovarian cancer Prostate cancer Myocardial infarction Colorectal cancer Social History Smoking Status: Unknown if ever smoked Second Hand Exposure: No; Do You Dip or Chew Tobacco: No; Hx Alcohol Use: No Hx Substance Use: No Preferred Language: Kyrgyz Communication Ability: Effective Communication Ability Comment: DAUGHTERZHOU DOES PAT PHONE INTERVIEW (POA)/PT HAS DEMENTIA Visual Impairment: Limited Hearing Ability: Normal Design Sales Consultant Required: No Beliefs That Will Affect Care: None marital status: / Current Living Situation: Alone current occupational status: retired How many Children do You have: 3 Feels Safe at Home: Yes Childhood Exposure to Second-Hand Smoke: Yes Diet: regular caffeine: No during the past year weight has: remained stable Dental Care, Regularly: Yes Physical Activity Frequency: Daily Physical Activity Frequency Comment: Walking Seatbelt Use: always Sunscreen Use: Yes Assistive Devices: Other Review of Systems Review of Systems: A 10 point review of system was obtained and unless otherwise stated here or in history of present illness are negative and noncontributory to chief complaint. Physical Exam Physical Exam: In General: In general this is a pleasant 88-year-old female who is alert and oriented to person only which is her baseline. She is accompanied by her 2 daughters at the time of my exam. While at rest and laying flat the patient is fairly comfortable. However she has severe pain with trying to sit forward for lung auscultation as discussed above. This pain is in the posterior rib region again approximately ribs 5 through 10. Partially reproducible with palpation. There is no midline thoracic spine tenderness however. HEENT: Normocephalic atraumatic pupils are equal round and reactive to light bilaterally. No scleral icterus no conjunctival injection external auditory canals are patent septum is in the midline nose is without discharge oral mucosa is pink and moist without lesion. NECK: Supple no rigidity no lymphadenopathy no thyromegaly no carotid bruits no JVD no masses. HEART: Regular rate and rhythm I do not appreciate any ectopy or rub. No murmur. LUNGS: Clear to auscultation bilaterally and anteriorly with no evidence of adventitious sounds/wheezes rales or rhonchi. ABDOMEN: Soft nontender, no rebound, no peritoneal signs, positive bowel sounds, no appreciable organomegaly. EXTREMITIES: Intact, no peripheral cyanosis, clubbing or edema. no pathological reflexes. NEUROLOGICAL: Cranial nerves II through XII are grossly intact with no focal deficit elicited upon examination. No tremor. Results & Data Results & Data Vital Signs (Past 12 Hours) Vital Signs Temp Pulse Pulse Resp BP BP Pulse Ox 03/30/24 13:54 71 21 100 03/30/24 13:30 139/67 03/30/24 12:42 68 16 96 03/30/24 12:00 71 21 127/72 94 03/30/24 11:53 71 17 140/76 98 03/30/24 11:24 85 03/30/24 11:23 36.6 C 77 21 146/81 H 99 O2 Del Method 03/30/24 13:54 Room Air 03/30/24 13:30 03/30/24 12:42 Room Air 03/30/24 12:00 Room Air 03/30/24 11:53 Room Air 03/30/24 11:24 03/30/24 11:23 Room Air Code Status & VTE Plan Code Status DO NOT RESUSCITATE. I personally discussed with the patient's 2 daughters at the bedside who reported being called power of civil attorney's and they confirmed a DNR status. VTE Prophylaxis Plan VTE Prophylaxis will be ordered: Yes PG Care Time/CCT Total # of Minutes Spent Total Time Spent with Patient: Total time spent is greater than 50% in coordination of care (as documented) at patient's floor/unit and/or counseling patient: Coding Level of Care Code 37502 INT INP/OBS CARE 3/75MIN Diagnoses Back contusion S20.229A Encounter type: initial encounter Laterality: unspecified laterality (1) Back contusion Encounter type: initial encounter Laterality: unspecified laterality Qualified Code(s): S20.229A - Contusion of unspecified back wall of thorax, initial encounter
[2024-03-30] MEDS: ACETAMINOPHEN 500 MG TAB PO STA (15:12)
[2024-03-30] MEDS: LIDOCAINE 5% 1 PATCH TD STA (15:12)
--- NOTE | 2024-03-30 16:22 | CT Scan Report ---
CT OF THE ABDOMEN AND PELVIS WITHOUT CONTRAST CLINICAL HISTORY: Fall, right sided rib/back pain COMPARISON STUDY: Pelvis and right hip radiographs performed earlier today. Right hip CT performed ea ier today. TECHNIQUE: Axial images of the abdomen and pelvis were obtained without IV contrast. Images were revi ewed in the axial, sagittal, and coronal planes. Automated exposure control was utilized for the jayant dy. A dose lowering technique was utilized adhering to the principles of ALARA. FINDINGS: Please note that the chest CT will be reported separately. Acute fractures of the posterior right seventh, eighth and ninth ribs are noted. The right ninth rib fracture is displaced. There is a trace right hemothorax. A lobulated subpleural 1.5 cm left lower lobe nodule on image 6 is present. Findings are better depicted on the chest CT which will be reported separately. There is a small hia daniele hernia. No hemoperitoneum or pneumoperitoneum is present. Solid abdominal viscera suboptimally as sessed by CT. No evidence for traumatic injury to the liver, spleen, adrenal glands, kidneys or pancr eas. Hyperdense right renal lesions are suboptimally assessed on unenhanced CT but favor hyperdense c yst. There is no evidence for a bowel obstruction. Multifocal wall thickening of the ascending colon and descending colon is noted with minimal pericolonic stranding. There are numerous mildly enlarged pericolonic lymph nodes. These measure up to 1.3 x 0.9 cm. There are prominent mesenteric lymph nodes . No acute lumbar spine, pelvic or hip fracture is identified. IMPRESSION: 1. No acute traumatic findings within the abdomen or pelvis on unenhanced exam. 2. Acute fractures of the posterior right seventh, eighth and ninth ribs with a trace right hemothora x. 3. Lobulated subpleural 1.5 left lower lobe pulmonary nodule. This is indeterminate. A follow-up ches t CT in 6 months is recommended. 4. Multifocal wall thickening of the colon, predominantly involving the ascending colon and descendin g colon with colonic stranding and enlarged pericolonic lymph nodes. Given long segment distribution, the findings may reflect a colitis. However, a neoplastic etiology could appear similar. A short-ter m follow-up CT of the abdomen and pelvis in one month is recommended. Alternatively, colonoscopy coul d be performed. ACT 112: Positive. There are findings on this exam that require communication between the performing entity and the patient following Patient Test Result Information Act ([place] Act 112) guidelines. Electronically signed by: Kleber Mckee M.D. 03/30/2024 4:21 PM
--- NOTE | 2024-03-30 16:32 | CT Scan Report ---
CT chest diagnostic wo con, CT thoracic spine wo con CLINICAL HISTORY: Fall, right sided rib/back pain TECHNIQUE: Multidetector row helical CT of the chest was performed. Coronal and sagittal reformations were obtained. Automated dose lowering techniques and/or adjustment according to patient size were u tilized for this exam. Dedicated images of the thoracic spine were obtained. CT DOSE: 1235.96 mGy.cm Comparison: None available at the time of this dictation. FINDINGS: Lungs and pleura: Atelectasis versus scarring is seen in the dependent portions of the lungs. Tree in bud nodules are in the right upper lobe and there is a cluster of nodules in the left lower lobe as well. Possible trace right hemothorax. Heart and pericardium: Heart size is normal. No pericardial effusion. Vessels: Mild atherosclerotic changes in the aorta and coronary arteries. Pulmonary trunk measures 31 mm in diameter. Mediastinum and lily: Subcentimeter lymph nodes are seen. Chest wall and lower neck: There is a 16 mm left thyroid nodule. Abdomen: For findings below the diaphragm, please refer to CT of the abdomen dated the same. Bones: Right seventh and eighth posterior rib fractures are seen. IMPRESSION: 1. Right posterior seventh and eighth rib fractures are seen with trace hemothorax. No pneumothorax or other acute abnormalities are seen. 2. Nodules are seen as above which may represent infectious/inflammatory process. ACT 112: Negative or not required by law. Electronically signed by: Gordon Evans M.D. 03/30/2024 4:31 PM
[2024-03-30] MEDS: ACETAMINOPHEN 325 MG TAB PO SCH (19:52)
[2024-03-30 23:10] LABS: Hematocrit (blood only) 34.9 % (37.0-47.0); Hemoglobin 11.2 g/dl (12.0-16.0)
[2024-03-31] MEDS: LEVOTHYROXINE SODIUM 75 MCG TABLET PO SCH (05:20)
--- NOTE | 2024-03-31 06:49 | XRay Report ---
XR chest 1V portable CLINICAL HISTORY: Fall. Rib fractures. Evaluate for increase in hemo/pneumothorax. COMPARISON STUDY: Chest radiograph and chest CT March 30, 2024. FINDINGS: There is no pneumothorax. The small right hemothorax on yesterday's chest CT is not evident by radiography. The posterior right second rib fractures are also better depicted on CT. There is no consolidation. Pulmonary vascular congestion is present. Cardiac mediastinal silhouette is stable.. IMPRESSION: 1. No pneumothorax. The small right hemothorax and acute right-sided rib fractures are not well-visua lized by radiography. These are better depicted on recent chest CT. 2. Pulmonary vascular congestion. ACT 112: Negative or not required by law. Electronically signed by: Kleber Mckee M.D. 03/31/2024 6:47 AM
[2024-03-31 07:17] LABS: Anion Gap 5 (3-11); BUN Creatinine Ratio 31.1 (10-20); Blood Urea Nitrogen 23 mg/dl (6-23); Calcium 8.6 mg/dl (8.6-10.3); Carbon Dioxide 29 mmol/L (21-32); Chloride 103 mmol/L (98-107); Est GFR (Non-African American) 73.4 ml/min; Glucose 102 mg/dl (70-99(Fasting)); Potassium 4.2 mmol/L (3.5-5.1); Sodium 137 mmol/L (136-145)
[2024-03-31 07:18] LABS: Hematocrit (blood only) 36.7 % (37.0-47.0); Hemoglobin 11.6 g/dl (12.0-16.0); Mean Corpuscular Hemoglobin 27.3 pg (25.0-34.0); Mean Corpuscular Hgb Conc 31.6 g/dL (32.0-36.0); Mean Corpuscular Volume 86.4 fL (80.0-100.0); Mean Platelet Volume 9.8 fL (9.4-12.4); Platelet Count 328 K/uL (130-400); RDW Coefficient of Variation 13.2 % (11.5-14.5); RDW Standard Deviation 41.5 fL (36.4-46.3); Red Blood Count 4.25 M/uL (4.20-5.40); White Blood Count 8.53 K/ul (4.8-10.8)
--- NOTE | 2024-03-31 08:31 | XRay Report ---
XR chest 1V portable CLINICAL HISTORY: eval for increase in hemo/pneumothorax TECHNIQUE: Single frontal radiograph of the chest was obtained. Comparison: Comparison is made to chest radiograph 03/30/[address] chest 03/30/2024 FINDINGS: No lines and tubes are seen. The cardiomediastinal silhouette is normal. The lungs are clear. No evid ence of pleural effusion or pneumothorax. Partial visualization of right rib fractures. IMPRESSION: No evidence of pneumothorax. There is no radiographically evident pleural fluid to suggest significan t increase in hemothorax. ACT 112: Negative or not required by law. Electronically signed by: Gordon Evans M.D. 03/31/2024 8:28 AM
[2024-03-31] MEDS: PANTOprazole 40 MG TAB PO SCH (08:34)
[2024-03-31] MEDS: ESCITALOPRAM OXALATE 10 MG TAB PO SCH (08:34)
[2024-03-31] MEDS: FAMOTIDINE 20 MG TAB PO SCH (08:34)
--- NOTE | 2024-03-31 08:36 | Hospitalist Progress Note ---
Date of Service March 31, 2024 Assessment & Plan (1) Fall: Plan: 88yo presented from dementia unit after a fall from standing position (but was unwitnessed) and found on the ground. Believes may have fallen against the wall/hit her back. with moderate to severe back pain and concerns initially for right hip pain/ambulatory dysfunction Initially negative CT head, cervical spine, lumbar spine, hip and plain films of the chest for acute injury (however noted on repeat CXR along with some pulm vascular congestoin) CT thoracic spine/CT chest notin. Right posterior seventh and eighth rib fractures are seen with trace hemothorax. No pneumothorax or other acute abnormalities are seen. 2. Nodules are seen as above which may represent infectious/inflammatory process. Incentive spirometry ordered Cough/deep breath Lidocaine patch ordered on admission, will order daily Tyelnol scheduled Allergy listed for n/v to oxycodone, added low dose tramadol if needed for breakthrough but cautious use in elderly w/ dementia to prevent worsened confusion Vit D level checked, LOW 12.1, PO replacement ordered and to continue at dc CXR from this morning reported w/o evidence for pneumothorax, no increase in fluid to suggest significant increase in hemothorax Pulmonology consulted given hemothorax, appreciate assistance/recs Fall precautions PT/OT consults UA for completeness, did appear possibly infected. ?cause for fall (2) Right rib fracture: Plan: noted as above on imaging, pain control/pulm consult repeat CXR this morning as above, pulm consult pending Notable Lobulated subpleural 1.5 left lower lobe pulmonary nodule. This is indeterminate. A follow-up chest CT in 6 months is recommended. Also has multifocal wall thickening of the colon, predominantly involving the ascending colon and descending colon with colonic stranding and enlarged pericolonic lymph nodes. Given long segment distribution, the findings may reflect a colitis. However, a neoplastic etiology could appear similar. A short- term follow-up CT of the abdomen and pelvis in one month is recommended. Alternatively, colonoscopy could be performed. (3) Hypothyroidism: Plan: on 75mcg daily, most recent TSH in system elevated and will add to AM labs given hx dementia for completeness (noted there is a 16 mm left thyroid nodule noted on CT imaging but no thyromegaly on exam) continue 75mcg daily in meantime, f/u TSH w/ AM labs (4) Back contusion: Plan: noted, pain control/therapy as above (5) Ulcerative colitis: Plan: History of ulcerative colitis with no evidence of flare. Is on meloxicam daily which has been held given on admission pain control w/ lidocaine patch, scheduled Tylenol for now (6) Chronic reflux esophagitis: Plan: famotidine daily hx noted of barretts, monitor for any issues reflux precautions (7) Memory impairment: Plan: from memory unit, frequent orientation CT head negative on admission check TSH w/ am labs, can add B12 in AM for completeness (8) Abnormal finding on CT scan: Plan: Noted abnormalities on CT imaging w/ Lobulated subpleural 1.5 left lower lobe pulmonary nodule. This is indeterminate. A follow-up chest CT in 6 months is recommended. Also has multifocal wall thickening of the colon, predominantly involving the ascending colon and descending colon with colonic stranding and enlarged pericolonic lymph nodes. Given long segment distribution, the findings may reflect a colitis. However, a neoplastic etiology could appear similar. A short- term follow-up CT of the abdomen and pelvis in one month is recommended. Alternatively, colonoscopy could be performed. Does have hx ulcerative colitis, will have f/u discussion w/ daughters about outpt GI referral if desired for c-scope vs CTAP in 1 month Can add CEA to AM labs for eval Plan continued inpatient stay updated daughter Kanyd by phone this morning, her and sister will be in to spend time with patient this afternoon. Hopeful return to [facility] but did discuss may need short term SNF at [facility] and will discuss w CM and have them talk w/ them when they arrive this afternoon Admission and Anticipated Discharge Date Admission Date: March 30, 2024 Supervising Physician Co-Signing Physician Notes The patient was not seen by me. The chart was reviewed. Case discussed with ÁNGELA Christianson. Agree with assessment and plan Subjective Patient evaluated this morning, sitting up in chair, NAD. Pleasant confusion but knows her name. When asked if lives in own home or personal care, she reports personal care. Unknown really events prior to fall but reports weakness at times. UA to be obtained, RN reporting appearing looking like beer, will monitor. Doing well with incentive spirometer, daughters to be in this afternoon and continue to encourage use. Lidocaine patch to be in place, low dose tramadol available if needed but 1st line scheduled Tylenol for now. Call to daughters for update, hopeful return to [facility] in next 24-48 hours pending eval w/ pulm/continued eval. Questions/concerns addressed at this time. Memory care at [facility]. Physical Exam Physical Exam: General: 88yo female sitting up in recliner, NAD HEENT: head atraimatic, pupils equal/reactive, mm slightly dry, trachea midline Chest: +TENDERNESS to palpation RIGHT ribs, 5-10, lidocaine patch in place, no crepitus Resp: even/unlabored, no w/c/r, slightly diminished in the bases, on room air 99% CV: RRR, no significant m/r/g, no pitting edema/calf tenderness GI:+BS, soft, slight distension, nontender Neuro/MSK:able to follow commands, no slurred speech/facial droop Psych: alert to person, knows lives in [facility] at baseline, pleasant confusion/dementia at baseline Results & Data Results & Data Vital Signs (Past 12 Hours) Vital Signs Temp Pulse Resp BP Pulse Ox O2 Del Method 03/31/24 07:00 36.4 C L 71 16 125/69 99 Room Air Laboratory Results 03/31/24 03/30/24 03/30/24 Range/Units 06:15 Unknown 22:43 WBC 8.53 (4.8-10.8) K/ul RBC 4.25 (4.20-5.40) M/uL Hgb 11.6 L 11.2 L (12.0-16.0) g/dl Hct 36.7 L 34.9 L (37.0-47.0) % MCV 86.4 (80.0-100.0) fL MCH 27.3 (25.0-34.0) pg MCHC 31.6 L (32.0-36.0) g/dL RDW Std Deviation 41.5 (36.4-46.3) fL RDW Coeff of [place] 13.2 (11.5-14.5) % Plt Count 328 (130-400) K/uL MPV 9.8 (9.4-12.4) fL Immature Gran % (Auto) % Neut % (Auto) % Lymph % (Auto) % [place] % (Auto) % Eos % (Auto) % Baso % (Auto) % Neut # (Auto) (1.40-6.50) K/uL Lymph # (Auto) (1.20-3.40) K/uL [place] # (Auto) (0.11-0.59) K/uL Eos # (Auto) (0.00-0.50) K/uL Baso # (Auto) (0.00-0.20) K/uL Immature Gran # (Auto) (0.01-0.20) K/uL PT (9.0-12.0) Seconds INR (0.9-1.1) APTT (21-31) Seconds PTT Ratio Sodium 137 (136-145) mmol/L Potassium 4.2 (3.5-5.1) mmol/L Chloride 103 (98-107) mmol/L Carbon Dioxide 29 (21-32) mmol/L Anion Gap 5 (3-11) BUN 23 (6-23) mg/dl Creatinine 0.74 (0.6-1.2) mg/dl Est Cr Clr Drug Dosing Not Reportable Est GFR ( Amer) 85.0 ml/min Est GFR (Non-Af Amer) 73.4 ml/min BUN/Creatinine Ratio 31.1 H (10-20) Glucose 102 H (70-99(Fasting)) mg/dl Calcium 8.6 (8.6-10.3) mg/dl Total Bilirubin (0.2-1.0) mg/dl AST (13-39) U/L ALT (7-52) U/L Alkaline Phosphatase (34-104) U/L Troponin I High Sens (0-14) pg/ml Total Protein (6.0-8.3) gm/dl Albumin (3.4-5.0) gm/dl Globulin (2.5-4.0) gm/dl Albumin/Globulin Ratio (0.9-2) Lipase (11-82) U/L Nasal Screen MRSA (PCR) Negative (Negative) 03/30/24 Range/Units 11:16 WBC 9.58 (4.8-10.8) K/ul RBC 4.40 (4.20-5.40) M/uL Hgb 11.9 L (12.0-16.0) g/dl Hct 37.2 (37.0-47.0) % MCV 84.5 (80.0-100.0) fL MCH 27.0 (25.0-34.0) pg MCHC 32.0 (32.0-36.0) g/dL RDW Std Deviation 40.3 (36.4-46.3) fL RDW Coeff of [place] 13.1 (11.5-14.5) % Plt Count 356 (130-400) K/uL MPV 9.7 (9.4-12.4) fL Immature Gran % (Auto) 0.3 % Neut % (Auto) 58.3 % Lymph % (Auto) 30.3 % [place] % (Auto) 8.6 % Eos % (Auto) 2.0 % Baso % (Auto) 0.5 % Neut # (Auto) 5.59 (1.40-6.50) K/uL Lymph # (Auto) 2.90 (1.20-3.40) K/uL [place] # (Auto) 0.82 H (0.11-0.59) K/uL Eos # (Auto) 0.19 (0.00-0.50) K/uL Baso # (Auto) 0.05 (0.00-0.20) K/uL Immature Gran # (Auto) 0.03 (0.01-0.20) K/uL PT 10.8 (9.0-12.0) Seconds INR 1.0 (0.9-1.1) APTT 27 (21-31) Seconds PTT Ratio 1.0 Sodium 135 L (136-145) mmol/L Potassium 4.0 (3.5-5.1) mmol/L Chloride 101 (98-107) mmol/L Carbon Dioxide 25 (21-32) mmol/L Anion Gap 9 (3-11) BUN 18 (6-23) mg/dl Creatinine 0.68 (0.6-1.2) mg/dl Est Cr Clr Drug Dosing Not Reportable Est GFR ( Amer) 91.8 ml/min Est GFR (Non-Af Amer) 79.2 ml/min BUN/Creatinine Ratio 26.5 H (10-20) Glucose 106 H (70-99(Fasting)) mg/dl Calcium 9.1 (8.6-10.3) mg/dl Total Bilirubin 0.5 (0.2-1.0) mg/dl AST 16 (13-39) U/L ALT 8 (7-52) U/L Alkaline Phosphatase 96 (34-104) U/L Troponin I High Sens 11.0 (0-14) pg/ml Total Protein 7.2 (6.0-8.3) gm/dl Albumin 4.1 (3.4-5.0) gm/dl Globulin 3.1 (2.5-4.0) gm/dl Albumin/Globulin Ratio 1.3 (0.9-2) Lipase 33 (11-82) U/L Nasal Screen MRSA (PCR) (Negative) Diagnostic Findings Cervical Spine CT 03/30/24 11:08 CT SCAN OF THE CERVICAL SPINE CLINICAL HISTORY: Fall. COMPARISON STUDY: Cervical spine radiographs dated 02/12/2022. TECHNIQUE: CT scan of the cervical spine is performed from the skull base to the upper thoracic spine. Images are reviewed in the axial, sagittal, and coronal planes. IV contrast was not administered for this examination. A dose lowering technique was utilized adhering to the principles of ALARA. CT DOSE: 2197.14 mGy.cm FINDINGS: Skeletal structures: The skeletal structures are osteopenic. There is no evidence of fracture or subluxation involving the cervical spine. Vertebral body height and alignment are maintained. There is straightening of the cervical lordosis. Anterior osteophytes are seen throughout. The odontoid process and lateral masses are intact. The atlantoaxial articulation is preserved no significant advanced productive degenerative change. The spinous processes appear intact. There is moderate multilevel cervical spondylosis. Uncovertebral and facet arthropathy contribute to neural foraminal narrowing at several levels. Intervertebral discs: There is moderate to severe disc space narrowing at C5-C6 and C6-C7. End plate sclerosis is noted C5-C6. Mild narrowing is seen at the remaining cervical levels. Central canal: Widely patent. Soft tissues: The prevertebral and paraspinous soft tissues are within normal limits. There is moderate atherosclerotic calcification of the left carotid bulb. Calvarium: The visualized calvarium at the skull base appears intact. Brain parenchyma: Partially visualized brain parenchyma at the skull base is within normal limits. Sinuses and mastoids: The visualized paranasal sinuses are clear. The mastoid air cells are well pneumatized. Lung apices: Clear as visualized. IMPRESSION: 1. There is no evidence of fracture or subluxation involving the cervical spine. 2. Osteopenia and spondylotic change as above. ACT 112: Negative or not required by law. Electronically signed by: Luis F Regan M.D. 03/30/2024 12:01 PM Chest X-Ray 03/30/24 11:08 XR chest 1V portable CLINICAL HISTORY: Chest pain, nonspecific TECHNIQUE: Single frontal radiograph of the chest was obtained. Comparison: Comparison is made to chest radiograph 02/10/2023 FINDINGS: No lines and tubes are seen. The cardiomediastinal silhouette is normal. Lungs are underinflated but clear. No evidence of pleural effusion or pneumothorax. IMPRESSION: No acute chest disease. ACT 112: Negative or not required by law. Electronically signed by: Gordon Evans M.D. 03/30/2024 11:[address] 03/30/24 11:08 CT head/brain wo con CLINICAL HISTORY: fall Technique: Contiguous axial CT images of the head were acquired from the base of the skull to the vertex without intravenous contrast administration. Images were viewed in brain, subdural and bone windows. Automated dose lowering techniques and/or adjustment according to patient size were utilized for this exam. Comparison: Comparison is made to CT head 01/25/2019 Findings: Areas of decreased attenuation are present in the periventricular and subcortical white matter bilaterally consistent with small vessel ischemic disease. Generalized cerebral atrophy with commensurate enlargement of the ventricles, sulci, and cisterns is also present. There is no acute intracranial hemorrhage or evidence of acute territorial infarction. No shift of the midline structures, mass effect, or extra-axial abnormalities are shown. Atherosclerotic calcifications are present in the intracranial segments of the internal carotid arteries. Imaged portions of the paranasal sinuses and mastoid air cells are clear. The orbits appear normal. There are no acute fractures of the calvaria or scalp swelling. Impression: No acute intracranial hemorrhage, no evidence of acute territorial infarction or other acute intracranial disease process. ACT 112: Negative or not required by law. Electronically signed by: Gordon Evans M.D. 03/30/2024 11:53 AM Hip/Pelvis X-Ray 03/30/24 11:08 XR hip RT 2V w pelvis CLINICAL HISTORY: Fall. COMPARISON: Pelvis and right hip radiographs February 15, 2019. FINDINGS: Sacroiliac joints and symphysis pubis are intact. There is no proximal left femoral fracture. There is slight foreshortening of the right femoral neck. Possible cortical irregularity of the right femoral neck: Crosstable lateral projection is noted. IMPRESSION: Slight foreshortening of the right femoral neck. This is likely technical. However, a right hip CT is recommended to exclude a nondisplaced impacted right femoral neck fracture. ACT 112: Negative or not required by law. Electronically signed by: Kleber Mckee M.D. 03/30/2024 11:[address] 03/30/24 11:08 CT lumbar spine wo con CLINICAL HISTORY: fall TECHNIQUE: Multidetector row helical CT of the lumbar spine was performed without administration of intravenous contrast. Coronal and sagittal reformations were obtained. Automated dose lowering techniques and/or adjustment according to patient size were utilized for this exam. Comparison: Comparison is made to lumbar spine radiographs 07/11/2020 FINDINGS: For counting purposes, the last complete intervertebral disc space is considered L5-S1. No acute fractures are identified. Vertebral body heights and disk spaces are well maintained. Vertebral body alignment is within normal limits. Hypodense lesions and cysts are seen in the right greater than left kidney compatible with cysts and hemorrhagic/proteinaceous cysts. Vascular calcifications are seen. IMPRESSION: No evidence of acute bony injury. ACT 112: Negative or not required by law. Electronically signed by: Gordon Evans M.D. 03/30/2024 11:[address] 03/30/24 11:33 CT hip RT wo con CLINICAL HISTORY: fall TECHNIQUE: Multidetector row helical CT of the right hip was performed without intravenous contrast. Coronal and sagittal reformations were obtained. Automated dose lowering techniques and/or adjustment according to patient size were utilized for this examination. CT DOSE: 411.27 mGy.cm Comparison: Right hip radiograph 11/30/2023 FINDINGS: The osseous structures are without fracture or dislocation. Degenerative changes are seen in the joints. No joint effusion is seen. The soft tissues are unremarkable. IMPRESSION: No acute abnormality. Previously noted foreshortening was likely artifactual. ACT 112: Negative or not required by law. Electronically signed by: Gordon Evans M.D. 03/30/2024 1:04 PM Abdomen/Pelvis CT 03/30/24 14:48 CT OF THE ABDOMEN AND PELVIS WITHOUT CONTRAST CLINICAL HISTORY: Fall, right sided rib/back pain COMPARISON STUDY: Pelvis and right hip radiographs performed earlier today. Right hip CT performed earlier today. TECHNIQUE: Axial images of the abdomen and pelvis were obtained without IV contrast. Images were reviewed in the axial, sagittal, and coronal planes. Automated exposure control was utilized for the study. A dose lowering technique was utilized adhering to the principles of ALARA. FINDINGS: Please note that the chest CT will be reported separately. Acute fractures of the posterior right seventh, eighth and ninth ribs are noted. The right ninth rib fracture is displaced. There is a trace right hemothorax. A lobulated subpleural 1.5 cm left lower lobe nodule on image 6 is present. Findings are better depicted on the chest CT which will be reported separately. There is a small hiatal hernia. No hemoperitoneum or pneumoperitoneum is pre sent. Solid abdominal viscera suboptimally assessed by CT. No evidence for traumatic injury to the liver, spleen, adrenal glands, kidneys or pancreas. Hyperdense right renal lesions are suboptimally assessed on unenhanced CT but favor hyperdense cyst. There is no evidence for a bowel obstruction. Multifocal wall thickening of the ascending colon and descending colon is noted with minimal pericolonic stranding. There are numerous mildly enlarged pericolonic lymph nodes. These measure up to 1.3 x 0.9 cm. There are prominent mesenteric lymph nodes. No acute lumbar spine, pelvic or hip fracture is identified. IMPRESSION: 1. No acute traumatic findings within the abdomen or pelvis on unenhanced exam. 2. Acute fractures of the posterior right seventh, eighth and ninth ribs with a trace right hemothorax. 3. Lobulated subpleural 1.5 left lower lobe pulmonary nodule. This is indeterminate. A follow-up chest CT in 6 months is recommended. 4. Multifocal wall thickening of the colon, predominantly involving the ascending colon and descending colon with colonic stranding and enlarged pericolonic lymph nodes. Given long segment distribution, the findings may reflect a colitis. However, a neoplastic etiology could appear similar. A short- term follow-up CT of the abdomen and pelvis in one month is recommended. Alternatively, colonoscopy could be performed. ACT 112: Positive. There are findings on this exam that require communication between the performing entity and the patient following Patient Test Result Information Act ([place] Act 112) guidelines. Electronically signed by: Kleber Mckee M.D. 03/30/2024 4:[address] 03/30/24 14:48 CT chest diagnostic wo con, CT thoracic spine wo con CLINICAL HISTORY: Fall, right sided rib/back pain TECHNIQUE: Multidetector row helical CT of the chest was performed. Coronal and sagittal reformations were obtained. Automated dose lowering techniques and/or adjustment according to patient size were utilized for this exam. Dedicated images of the thoracic spine were obtained. CT DOSE: 1235.96 mGy.cm Comparison: None available at the time of this dictation. FINDINGS: Lungs and pleura: Atelectasis versus scarring is seen in the dependent portions of the lungs. Tree in bud nodules are in the right upper lobe and there is a cluster of nodules in the left lower lobe as well. Possible trace right hemothorax. Heart and pericardium: Heart size is normal. No pericardial effusion. Vessels: Mild atherosclerotic changes in the aorta and coronary arteries. Pulmonary trunk measures 31 mm in diameter. Mediastinum and lily: Subcentimeter lymph nodes are seen. Chest wall and lower neck: There is a 16 mm left thyroid nodule. Abdomen: For findings below the diaphragm, please refer to CT of the abdomen dated the same. Bones: Right seventh and eighth posterior rib fractures are seen. IMPRESSION: 1. Right posterior seventh and eighth rib fractures are seen with trace hemothorax. No pneumothorax or other acute abnormalities are seen. 2. Nodules are seen as above which may represent infectious/inflammatory process. ACT 112: Negative or not required by law. Electronically signed by: Gordon Evans M.D. 03/30/2024 4:[address] 03/30/24 14:48 CT chest diagnostic wo con, CT thoracic spine wo con CLINICAL HISTORY: Fall, right sided rib/back pain TECHNIQUE: Multidetector row helical CT of the chest was performed. Coronal and sagittal reformations were obtained. Automated dose lowering techniques and/or adjustment according to patient size were utilized for this exam. Dedicated images of the thoracic spine were obtained. CT DOSE: 1235.96 mGy.cm Comparison: None available at the time of this dictation. FINDINGS: Lungs and pleura: Atelectasis versus scarring is seen in the dependent portions of the lungs. Tree in bud nodules are in the right upper lobe and there is a cluster of nodules in the left lower lobe as well. Possible trace right hemothorax. Heart and pericardium: Heart size is normal. No pericardial effusion. Vessels: Mild atherosclerotic changes in the aorta and coronary arteries. Pulmonary trunk measures 31 mm in diameter. Mediastinum and lily: Subcentimeter lymph nodes are seen. Chest wall and lower neck: There is a 16 mm left thyroid nodule. Abdomen: For findings below the diaphragm, please refer to CT of the abdomen dated the same. Bones: Right seventh and eighth posterior rib fractures are seen. IMPRESSION: 1. Right posterior seventh and eighth rib fractures are seen with trace hemothorax. No pneumothorax or other acute abnormalities are seen. 2. Nodules are seen as above which may represent infectious/inflammatory process. ACT 112: Negative or not required by law. Electronically signed by: Gordon Evans M.D. 03/30/2024 4:31 PM Chest X-Ray 03/30/24 21:00 XR chest 1V portable CLINICAL HISTORY: Fall. Rib fractures. Evaluate for increase in hemo/pneumothorax. COMPARISON STUDY: Chest radiograph and chest CT March 30, 2024. FINDINGS: There is no pneumothorax. The small right hemothorax on yesterday's chest CT is not evident by radiography. The posterior right second rib fractures are also better depicted on CT. There is no consolidation. Pulmonary vascular congestion is present. Cardiac mediastinal silhouette is stable.. IMPRESSION: 1. No pneumothorax. The small right hemothorax and acute right-sided rib fractures are not well-visualized by radiography. These are better depicted on recent chest CT. 2. Pulmonary vascular congestion. ACT 112: Negative or not required by law. Electronically signed by: Kleber Mckee M.D. 03/31/2024 6:47 AM PG Care Time/CCT Total # of Minutes Spent Total Time Spent with Patient: Total time spent is greater than 50% in coordination of care (as documented) at patient's floor/unit and/or counseling patient: Coding Level of Care Code 47236 SUB INP/OBS CARE 3/50MIN Diagnoses Fall W19.XXXA Encounter type: initial encounter Right rib fracture S22.41XA Encounter type: initial encounter Fracture type: closed Rib fracture type: multiple ribs Hypothyroidism E03.9 Back contusion S20.229A Encounter type: initial encounter Laterality: unspecified laterality Ulcerative pancolitis without complication K51.00 Digestive disease complication type: without complication Ulcerative colitis location: ulcerative pancolitis Chronic reflux esophagitis K21.0 Memory impairment R41.[address] scan R93.89 (1) Fall Encounter type: initial encounter Qualified Code(s): W19.XXXA - Unspecified fall, initial encounter (2) Right rib fracture Encounter type: initial encounter Fracture type: closed Rib fracture type: multiple ribs Qualified Code(s): S22.41XA - Multiple fractures of ribs, right side, initial encounter for closed fracture (4) Back contusion Encounter type: initial encounter Laterality: unspecified laterality Qualified Code(s): S20.229A - Contusion of unspecified back wall of thorax, initial encounter (5) Ulcerative colitis Digestive disease complication type: without complication Ulcerative colitis location: ulcerative pancolitis Qualified Code(s): K51.00 - Ulcerative (chronic) pancolitis without complications
[2024-03-31 08:58] LABS: Magnesium 1.9 mg/dl (1.7-2.4)
[2024-03-31 09:14] LABS: Thyroid Stimulating Hormone 4.468 uIu/ml (0.300-4.500)
[2024-03-31] MEDS: LIDOCAINE 5% 1 PATCH TD SCH (09:20)
[2024-03-31] MEDS: CHOLECALCIFEROL 125 MCG (5,000 UNITS) TAB PO SCH (11:03)
--- NOTE | 2024-03-31 12:47 | Pulmonary Consultation ---
Date of Consultation March 31, 2024 Assessment & Plan (1) Abnormal finding on CT scan: Possible trace hemothorax. No evidence of increasing hemothorax or pneumothorax on repeat chest x-ray today. No role for pleural interventions at this time. Patient with small tree-in-bud nodules noted in the bilateral lung mc possibly related to chronic aspiration pneumonitis or MAC infection. Defer further workup at this time as she is relatively asymptomatic. Hemoglobin has remained stable. (2) Right rib fracture: Pain control per primary team. Plan Patient can be discharged from the hospital from a pulmonary perspective at this time. No other recommendations. Thank you for the consult. History of Present Illness Reason for Consultation: Hemothorax Attending Physician: Gerson Martines MD History of Present Illness 88-year-old female who presented yesterday to the hospital after a fall. Found to have right posterior seventh and eighth rib fractures and trace hemothorax on CT chest 03/30/2024. Tree-in-bud nodules also noted in the right upper lobe and a cluster in the left lower lobe. Patient today denies any shortness of breath. She has some mild right flank pain. She has a lidocaine patch over her ribs on the right side. She is currently working with occupational therapy. Her hemoglobin has remained stable. She is not on any anticoagulation. Allergies Allergy/AdvReac Type Severity Reaction Status Date / Time shellfish derived Allergy Unknown Unknown Verified 03/30/24 12:12 oxycodone AdvReac Unknown N&V Verified 03/30/24 12:12 Home Medications Medication Instructions Recorded Confirmed Type escitalopram oxalate 5 mg tablet 5 mg PO DAILY 03/30/24 03/30/24 History famotidine 20 mg tablet 20 mg PO DAILY 03/30/24 03/30/24 History levothyroxine 75 mcg tablet 75 mcg PO DAILY 03/30/24 03/30/24 History meloxicam 7.5 mg tablet 7.5 mg PO DAILY 03/30/24 03/30/24 History omeprazole 20 mg capsule,delayed 20 mg PO DAILY 03/30/24 03/30/24 History release Patient History Medical History Dementia Arthritis Trouble swallowing Barretts esophagus Benign positional vertigo Chronic reflux esophagitis Hyperlipidemia Hypothyroidism Osteoporosis Colon cancer (~2004) HX 2004/HX RESECTION Breast cancer (~2008) HX 2009/LEFT MASTECTOMY Surgical History History of endoscopy History of colonoscopy History of blepharoplasty History of colon surgery Part of colon removed History of mastectomy LEFT History of foot surgery Family History Aunt Breast cancer Other No pertinent family history Denies family history of Ovarian cancer Prostate cancer Myocardial infarction Colorectal cancer Social History Smoking Status: Former smoker Second Hand Exposure: No; Do You Dip or Chew Tobacco: No; Hx Alcohol Use: No Hx Substance Use: No Preferred Language: Irish Communication Ability: Impaired Communication Ability Comment: DAUGHTERZHOU DOES PAT PHONE INTERVIEW (POA)/PT HAS DEMENTIA Visual Impairment: Limited Hearing Ability: Normal Bursar Required: No Beliefs That Will Affect Care: None marital status: / Current Living Situation: Alf Current Living Situation Comment: Memory care unit at [facility] current occupational status: retired How many Children do You have: 3 Feels Safe at Home: Yes Childhood Exposure to Second-Hand Smoke: Yes Diet: regular caffeine: No during the past year weight has: remained stable Dental Care, Regularly: Yes Physical Activity Frequency: Daily Physical Activity Frequency Comment: Walking Seatbelt Use: always Sunscreen Use: Yes Assistive Devices: None Review of Systems Review of Systems: All systems reviewed & are unremarkable except as noted in HPI & below Physical Exam Physical Exam: Constitutional: Patient appears to be of their stated age. Patient is in no apparent distress. Patient is well-developed. Eyes: Pupils are equal round and reactive to light. Conjunctivae are normal. Anicteric sclera. Ears nose, mouth and throat: Mallampati class 2. Normal posterior oropharynx. Uvula is midline. Neck: Trachea is midline. Visual inspection is normal. Respiratory: Clear to auscultation bilaterally. No use of accessory muscles. No significant clubbing noted. Cardiovascular: Regular rate and rhythm. No murmurs. No edema. Gastrointestinal: Normal bowel sounds, soft, nontender and nondistended. No hepatosplenomegaly noted. Musculoskeletal: No cyanosis. Patient is able to move all extremities. Strength is 5 out of 5 in the upper and lower extremities. Pain noted on palpation along the lateral ribs. Skin: No rashes, warm dry and intact. Neurologic: No obvious focal neurological deficits seen. Psychiatric: Alert and oriented x3 with a euthymic affect. Results & Data Results & Data Vital Signs (Past 12 Hours) Vital Signs Temp Pulse Resp BP Pulse Ox O2 Del Method 03/31/24 07:00 36.4 C L 71 16 125/69 99 Room Air PG Care Time/CCT Total # of Minutes Spent Total Time Spent with Patient: Total time spent is greater than 50% in coordination of care (as documented) at patient's floor/unit and/or counseling patient: Coding Level of Care Code 67814 INT INP/OBS CARE 140MIN Diagnoses Abnormal finding on CT scan R93.89 Right rib fracture S22.31XA
[2024-04-01] MEDS: traMADol HCL 50 MG TABLET PO PRN (05:35)
[2024-04-01 07:53] LABS: Hematocrit (blood only) 35.3 % (37.0-47.0); Hemoglobin 11.2 g/dl (12.0-16.0); Mean Corpuscular Hemoglobin 27.1 pg (25.0-34.0); Mean Corpuscular Hgb Conc 31.7 g/dL (32.0-36.0); Mean Corpuscular Volume 85.3 fL (80.0-100.0); Mean Platelet Volume 9.6 fL (9.4-12.4); Platelet Count 337 K/uL (130-400); RDW Coefficient of Variation 13.2 % (11.5-14.5); Red Blood Count 4.14 M/uL (4.20-5.40); White Blood Count 8.91 K/ul (4.8-10.8)
[2024-04-01 08:13] LABS: Anion Gap 6 (3-11); BUN Creatinine Ratio 43.2 (10-20); Blood Urea Nitrogen 32 mg/dl (6-23); Calcium 8.6 mg/dl (8.6-10.3); Carbon Dioxide 28 mmol/L (21-32); Chloride 103 mmol/L (98-107); Est GFR (Non-African American) 73.4 ml/min; Glucose 102 mg/dl (70-99(Fasting)); Magnesium 1.9 mg/dl (1.7-2.4); Potassium 3.8 mmol/L (3.5-5.1); Sodium 137 mmol/L (136-145)
--- NOTE | 2024-04-01 08:32 | Hospitalist Progress Note ---
Date of Service April 01, 2024 Assessment & Plan (1) Fall: Plan: 88yo presented from dementia unit after a fall from standing position (but was unwitnessed) and found on the ground. Believes may have fallen against the wall/hit her back. with moderate to severe back pain and concerns initially for right hip pain/ambulatory dysfunction Initially negative CT head, cervical spine, lumbar spine, hip and plain films of the chest for acute injury (however noted on repeat CXR along with some pulm vascular congestoin) CT thoracic spine/CT chest notin. Right posterior seventh and eighth rib fractures are seen with trace hemothorax. No pneumothorax or other acute abnormalities are seen. 2. Nodules are seen as above which may represent infectious/inflammatory process. Incentive spirometry ordered, Cough/deep breath Lidocaine patch ordered on admission, will order daily Tylenol scheduled Allergy listed for n/v to oxycodone, added low dose tramadol if needed for breakthrough but cautious use in elderly w/ dementia to prevent worsened confusion CXR repeat reported w/o evidence for pneumothorax, no increase in fluid to suggest significant increase in hemothorax Pulmonology consulted given hemothorax, appreciate assistance/recs--no need for intervention Vit D level checked, LOW 12.1, PO replacement ordered and to continue at dc Fall precautions, PT/OT consults, rec for SNF (from memory unit [facility], needs to be more independent) UA for completeness, did appear possibly infected. ?cause for fall, have not yet been able to obtain Bowel regimen added, CEA not elevated as below but should have f/u GI outpt CM applying for auth, possible SNF [facility] in AM. (2) Right rib fracture: Plan: noted as above on imaging, pain control/pulm consult repeat CXR this morning as above, pulm consult pending Notable Lobulated subpleural 1.5 left lower lobe pulmonary nodule. This is indeterminate. A follow-up chest CT in 6 months is recommended. Also has multifocal wall thickening of the colon, predominantly involving the ascending colon and descending colon with colonic stranding and enlarged pericolonic lymph nodes. Given long segment distribution, the findings may reflect a colitis. However, a neoplastic etiology could appear similar. A short- term follow-up CT of the abdomen and pelvis in one month is recommended. Alternatively, colonoscopy could be performed. (3) Hypothyroidism: Plan: on 75mcg daily, most recent TSH in system elevated and will add to AM labs given hx dementia for completeness (noted there is a 16 mm left thyroid nodule noted on CT imaging but no thyromegaly on exam) TSH wnl but borderline, 4.46 and continue 75mcg daily for now. Outpt f/u PCP (4) Back contusion: Plan: noted, pain control/therapy as above (5) Ulcerative colitis: Plan: History of ulcerative colitis with no evidence of flare. Is on meloxicam daily which has been held given on admission pain control w/ lidocaine patch, scheduled Tylenol for now Rec outpt f/u GI for above as desired (6) Chronic reflux esophagitis: Plan: famotidine daily hx noted of barretts, monitor for any issues reflux precautions (7) Memory impairment: Plan: from memory unit, frequent orientation CT head negative on admission TSH wnl as above, continue home synthroid B12 for complexness/balance issues reported --> LOW normal, 1000mcg PO daily started and would continue at discharge (8) Abnormal finding on CT scan: Plan: Noted abnormalities on CT imaging w/ Lobulated subpleural 1.5 left lower lobe pulmonary nodule. This is indeterminate. A follow-up chest CT in 6 months is recommended. Also has multifocal wall thickening of the colon, predominantly involving the ascending colon and descending colon with colonic stranding and enlarged pericolonic lymph nodes. Given long segment distribution, the findings may reflect a colitis. However, a neoplastic etiology could appear similar. A short- term follow-up CT of the abdomen and pelvis in one month is recommended. Alternatively, colonoscopy could be performed. Does have hx ulcerative colitis, will have f/u discussion w/ daughters about outpt GI referral if desired for c-scope vs CTAP in 1 month CEA NOT ELEVATED (9) Vitamin D deficiency: Plan: checked due to fractures, LOW 12.8, PO replacement started and would continue at dc Plan continued inpatient stay updated daughter Kandy AM 03/31, will plan to call this afternoon Planning for SNF at [facility] tomorrow, auth to be applied for by CM today and they can take w/ auth pending Admission and Anticipated Discharge Date Admission Date: March 30, 2024 Supervising Physician Co-Signing Physician Notes The patient was not seen by me. The chart was reviewed. Case discussed with ÁNGELA Christianson. Agree with assessment and plan Subjective Eval this morning, sitting up in chair, NAD Was feed yesterday but feeding herself today. Pain controlled, only hurts when up/moving. Anticipating [facility] tomorrow SNF, will update daughter via phone this afternoon. Physical Exam Physical Exam: General: 88yo female sitting up in recliner, NAD HEENT: head atraumatic, pupils equal/reactive, mm slightly dry, trachea midline Chest: +TENDERNESS to palpation RIGHT ribs, 5-10, lidocaine patch in place, no c repitus Resp: even/unlabored, no w/c/r, slightly diminished in the bases, on room air 99% CV: RRR, no significant m/r/g, no pitting edema/calf tenderness GI:+BS, soft, slight distension, no overt tenderness Neuro/MSK:able to follow commands, no slurred speech/facial droop Psych: alert to person, knows lives in [facility] at baseline, pleasant confusion/dementia at baseline Results & Data Results & Data Vital Signs (Past 12 Hours) Vital Signs Temp Pulse Resp BP Pulse Ox O2 Del Method 04/01/24 07:58 36.4 C L 69 18 117/69 99 Room Air Laboratory Results 04/01/24 Range/Units 07:05 WBC 8.91 (4.8-10.8) K/ul RBC 4.14 L (4.20-5.40) M/uL Hgb 11.2 L (12.0-16.0) g/dl Hct 35.3 L (37.0-47.0) % MCV 85.3 (80.0-100.0) fL MCH 27.1 (25.0-34.0) pg MCHC 31.7 L (32.0-36.0) g/dL RDW Std Deviation 41.0 (36.4-46.3) fL RDW Coeff of [place] 13.2 (11.5-14.5) % Plt Count 337 (130-400) K/uL MPV 9.6 (9.4-12.4) fL Sodium 137 (136-145) mmol/L Potassium 3.8 (3.5-5.1) mmol/L Chloride 103 (98-107) mmol/L Carbon Dioxide 28 (21-32) mmol/L Anion Gap 6 (3-11) BUN 32 H (6-23) mg/dl Creatinine 0.74 (0.6-1.2) mg/dl Est Cr Clr Drug Dosing Not Reportable Est GFR ( Amer) 85.0 ml/min Est GFR (Non-Af Amer) 73.4 ml/min BUN/Creatinine Ratio 43.2 H (10-20) Glucose 102 H (70-99(Fasting)) mg/dl Calcium 8.6 (8.6-10.3) mg/dl Magnesium 1.9 (1.7-2.4) mg/dl Carcinoembryonic Ag 1.6 (0-2.5) ng/ml Vitamin B12 365 (180-914) pg/ml PG Care Time/CCT Total # of Minutes Spent Total Time Spent with Patient: Total time spent is greater than 50% in coordination of care (as documented) at patient's floor/unit and/or counseling patient: Coding Level of Care Code 54697 SUB INP/OBS CARE 3/50MIN Diagnoses Fall W19.XXXA Encounter type: initial encounter Right rib fracture S22.41XA Encounter type: initial encounter Fracture type: closed Rib fracture type: multiple ribs Hypothyroidism E03.9 Back contusion S20.229A Encounter type: initial encounter Laterality: unspecified laterality Ulcerative pancolitis without complication K51.00 Digestive disease complication type: without complication Ulcerative colitis location: ulcerative pancolitis Chronic reflux esophagitis K21.0 Memory impairment R41.[address] scan R93.89 Vitamin D deficiency E55.9 (1) Fall Encounter type: initial encounter Qualified Code(s): W19.XXXA - Unspecified fall, initial encounter (2) Right rib fracture Encounter type: initial encounter Fracture type: closed Rib fracture type: multiple ribs Qualified Code(s): S22.41XA - Multiple fractures of ribs, right side, initial encounter for closed fracture (4) Back contusion Encounter type: initial encounter Laterality: unspecified laterality Qualified Code(s): S20.229A - Contusion of unspecified back wall of thorax, initial encounter (5) Ulcerative colitis Digestive disease complication type: without complication Ulcerative colitis location: ulcerative pancolitis Qualified Code(s): K51.00 - Ulcerative (chronic) pancolitis without complications
[2024-04-01] MEDS: POLYETHYLENE (MIRALAX) 17 GM PACK PO SCH (12:50)
[2024-04-01] MEDS: DOCUSATE SODIUM 100 MG CAP PO SCH (12:50)
[2024-04-01] MEDS: CYANOCOBALAMIN (B-12) 500 MCG TABLET PO SCH (13:26)
[2024-04-01 13:34] LABS: Appearance Urine Cloudy (Clear); Bacteria Urine Automated 4+ (None Seen); Bilirubin Urine Negative (Negative); Blood Urine 1+ (Negative); Color Urine Yellow; Glucose Urine UA Negative (Negative); Ketones Urine Trace (Negative); Leukocyte Esterase Urine 2+ (Negative); Nitrite Urine Positive (Negative); Protein Urine 1+ (Negative); RBC Urine Automated 0-2 /hpf (0-2); Specific Gravity Urine 1.028 (1.000-1.030); Urobilinogen Urine Negative (Negative); WBC Urine Automated 21-50 /hpf (0-5); pH Urine 5.5 (4.5-7.5)
[2024-04-01 15:52] LABS: Creatine Kinase 90 U/L (26-192)
[2024-04-01] MEDS: SODIUM CHLORIDE 0.9% 500 ML IV SCH (16:17)
[2024-04-01] MEDS: cefTRIAXone SODIUM 1,000 MG/50 ML BAG IV SCH (16:24)
[2024-04-02 08:07] LABS: Hematocrit (blood only) 33.1 % (37.0-47.0); Hemoglobin 10.4 g/dl (12.0-16.0); Mean Corpuscular Hemoglobin 26.7 pg (25.0-34.0); Mean Corpuscular Hgb Conc 31.4 g/dL (32.0-36.0); Mean Corpuscular Volume 84.9 fL (80.0-100.0); Mean Platelet Volume 9.7 fL (9.4-12.4); Platelet Count 344 K/uL (130-400); RDW Coefficient of Variation 13.2 % (11.5-14.5); White Blood Count 10.29 K/ul (4.8-10.8)
[2024-04-02 08:35] LABS: Anion Gap 5 (3-11); BUN Creatinine Ratio 43.1 (10-20); Blood Urea Nitrogen 28 mg/dl (6-23); Calcium 8.4 mg/dl (8.6-10.3); Carbon Dioxide 28 mmol/L (21-32); Chloride 105 mmol/L (98-107); Est GFR (African American) 93.2 ml/min; Est GFR (Non-African American) 80.4 ml/min; Glucose 99 mg/dl (70-99(Fasting)); Magnesium 1.9 mg/dl (1.7-2.4); Potassium 4.1 mmol/L (3.5-5.1); Sodium 138 mmol/L (136-145)
--- NOTE | 2024-04-02 09:01 | Discharge Summary ---
Date of Service April 02, 2024 Admission HPI Per Admitting Provider This is an 88-year-old female who lives at a halfway in a dementia unit. She apparently had a fall backwards from a standing position yesterday. She was able to ambulate somewhat yesterday typically ambulates independently. Family at the bedside. However today only take 1-2 steps with two-person assist and wheeled walker. She was sent to the ER from the halfway for further evaluation and treatment initial reports was with right hip pain. The patient had plain film x-rays of the chest, CAT scans of the head and cervical spine lumbar spine and right hip. All of the symptoms were negative for acute findings. We are called admit the patient for further evaluation and treatment for refractory pain. The patient had IV fentanyl and IV Zofran in the ER. The patient is accompanied by her 2 daughters at the bedside at the time of my evaluation they report that they are code power of employment attorney's. They confirm his CODE STATUS is a DO NOT RESUSCITATE. On my evaluation as described on the physical exam this patient's pain is in the right mid rib region from approximately posterior ribs 5 through 10. It is reproducible with palpation. When I sit her up to auscultate her posterior lung mc she shakes with severe pain and becomes tearful and again this is partially reproducible with palpation with no midline tenderness. Regarding the stat CTs of the thoracic spine, chest, and the abdomen pelvis. Concern for occult rib injury on the right posterior Principal Diagnosis Fall, Multiple Rib Fracture (right sided) with hemothorax, UTI Discharge Exam General: 88yo female sitting in bed, NAD, wanting to go home HEENT: head atraumatic, pupils equal/reactive, mm improved, trachea midline Chest: +TENDERNESS to palpation RIGHT ribs, 5-10, lidocaine patch in place, no crepitus Resp: even/unlabored, no w/c/r, slightly diminished in the bases but improved, on room air 96% CV: RRR, no significant m/r/g, no pitting edema/calf tenderness GI:+BS, soft, no overt tenderness but is slightly tender to palpation suprapubic region, no rebound/rgidity/warmth Neuro/MSK:able to follow commands, no slurred speech/facial droop Psych: alert to person, knows lives in [facility] at baseline, pleasant confusion/dementia at baseline Discharge Data Allergies Allergy/AdvReac Type Severity Reaction Status Date / Time shellfish derived Allergy Unknown Unknown Verified 03/30/24 12:12 oxycodone AdvReac Unknown N&V Verified 03/30/24 12:12 Consultations 03/30/24 14:25 ED Decision to Admit Stat 03/30/24 18:07 Consult Pulmonology Routine Ordered Studies Cervical Spine CT 03/30/24 11:08 CT SCAN OF THE CERVICAL SPINE CLINICAL HISTORY: Fall. COMPARISON STUDY: Cervical spine radiographs dated 02/12/2022. TECHNIQUE: CT scan of the cervical spine is performed from the skull base to the upper thoracic spine. Images are reviewed in the axial, sagittal, and coronal planes. IV contrast was not administered for this examination. A dose lowering technique was utilized adhering to the principles of ALARA. CT DOSE: 2197.14 mGy.cm FINDINGS: Skeletal structures: The skeletal structures are osteopenic. There is no evidence of fracture or subluxation involving the cervical spine. Vertebral body height and alignment are maintained. There is straightening of the cervical lordosis. Anterior osteophytes are seen throughout. The odontoid process and lateral masses are intact. The atlantoaxial articulation is preserved no significant advanced productive degenerative change. The spinous processes appear intact. There is moderate multilevel cervical spondylosis. Uncovertebral and facet arthropathy contribute to neural foraminal narrowing at several levels. Intervertebral discs: There is moderate to severe disc space narrowing at C5-C6 and C6-C7. End plate sclerosis is noted C5-C6. Mild narrowing is seen at the remaining cervical levels. Central canal: Widely patent. Soft tissues: The prevertebral and paraspinous soft tissues are within normal limits. There is moderate atherosclerotic calcification of the left carotid bulb. Calvarium: The visualized calvarium at the skull base appears intact. Brain parenchyma: Partially visualized brain parenchyma at the skull base is within normal limits. Sinuses and mastoids: The visualized paranasal sinuses are clear. The mastoid air cells are well pneumatized. Lung apices: Clear as visualized. IMPRESSION: 1. There is no evidence of fracture or subluxation involving the cervical spine. 2. Osteopenia and spondylotic change as above. ACT 112: Negative or not required by law. Electronically signed by: Luis F Regan M.D. 03/30/2024 12:01 PM Chest X-Ray 03/30/24 11:08 XR chest 1V portable CLINICAL HISTORY: Chest pain, nonspecific TECHNIQUE: Single frontal radiograph of the chest was obtained. Comparison: Comparison is made to chest radiograph 02/10/2023 FINDINGS: No lines and tubes are seen. The cardiomediastinal silhouette is normal. Lungs are underinflated but clear. No evidence of pleural effusion or pneumothorax. IMPRESSION: No acute chest disease. ACT 112: Negative or not required by law. Electronically signed by: Gordon Evans M.D. 03/30/2024 11:[address] 03/30/24 11:08 CT head/brain wo con CLINICAL HISTORY: fall Technique: Contiguous axial CT images of the head were acquired from the base of the skull to the vertex without intravenous contrast administration. Images were viewed in brain, subdural and bone windows. Automated dose lowering techniques and/or adjustment according to patient size were utilized for this exam. Comparison: Comparison is made to CT head 01/25/2019 Findings: Areas of decreased attenuation are present in the periventricular and subcortical white matter bilaterally consistent with small vessel ischemic disease. Generalized cerebral atrophy with commensurate enlargement of the ventricles, sulci, and cisterns is also present. There is no acute intracranial hemorrhage or evidence of acute territorial infarction. No shift of the midline structures, mass effect, or extra-axial abnormalities are shown. Atherosclerotic calcifications are present in the intracranial segments of the internal carotid arteries. Imaged portions of the paranasal sinuses and mastoid air cells are clear. The orbits appear normal. There are no acute fractures of the calvaria or scalp swelling. Impression: No acute intracranial hemorrhage, no evidence of acute territorial infarction or other acute intracranial disease process. ACT 112: Negative or not required by law. Electronically signed by: Gordon Evans M.D. 03/30/2024 11:53 AM Hip/Pelvis X-Ray 03/30/24 11:08 XR hip RT 2V w pelvis CLINICAL HISTORY: Fall. COMPARISON: Pelvis and right hip radiographs February 15, 2019. FINDINGS: Sacroiliac joints and symphysis pubis are intact. There is no proximal left femoral fracture. There is slight foreshortening of the right femoral neck. Possible cortical irregularity of the right femoral neck: Crosstable lateral projection is noted. IMPRESSION: Slight foreshortening of the right femoral neck. This is likely technical. However, a right hip CT is recommended to exclude a nondisplaced impacted right femoral neck fracture. ACT 112: Negative or not required by law. Electronically signed by: Kleber Mckee M.D. 03/30/2024 11:[address] 03/30/24 11:08 CT lumbar spine wo con CLINICAL HISTORY: fall TECHNIQUE: Multidetector row helical CT of the lumbar spine was performed without administration of intravenous contrast. Coronal and sagittal r eformations were obtained. Automated dose lowering techniques and/or adjustment according to patient size were utilized for this exam. Comparison: Comparison is made to lumbar spine radiographs 07/11/2020 FINDINGS: For counting purposes, the last complete intervertebral disc space is considered L5-S1. No acute fractures are identified. Vertebral body heights and disk spaces are well maintained. Vertebral body alignment is within normal limits. Hypodense lesions and cysts are seen in the right greater than left kidney compatible with cysts and hemorrhagic/proteinaceous cysts. Vascular calcifications are seen. IMPRESSION: No evidence of acute bony injury. ACT 112: Negative or not required by law. Electronically signed by: Gordon Evans M.D. 03/30/2024 11:[address] 03/30/24 11:33 CT hip RT wo con CLINICAL HISTORY: fall TECHNIQUE: Multidetector row helical CT of the right hip was performed without intravenous contrast. Coronal and sagittal reformations were obtained. Automated dose lowering techniques and/or adjustment according to patient size were utilized for this examination. CT DOSE: 411.27 mGy.cm Comparison: Right hip radiograph 11/30/2023 FINDINGS: The osseous structures are without fracture or dislocation. Degenerative changes are seen in the joints. No joint effusion is seen. The soft tissues are unremarkable. IMPRESSION: No acute abnormality. Previously noted foreshortening was likely artifactual. ACT 112: Negative or not required by law. Electronically signed by: Gordon Evans M.D. 03/30/2024 1:04 PM Abdomen/Pelvis CT 03/30/24 14:48 CT OF THE ABDOMEN AND PELVIS WITHOUT CONTRAST CLINICAL HISTORY: Fall, right sided rib/back pain COMPARISON STUDY: Pelvis and right hip radiographs performed earlier today. Right hip CT performed earlier today. TECHNIQUE: Axial images of the abdomen and pelvis were obtained without IV contrast. Images were reviewed in the axial, sagittal, and coronal planes. Automated exposure control was utilized for the study. A dose lowering technique was utilized adhering to the principles of ALARA. FINDINGS: Please note that the chest CT will be reported separately. Acute fractures of the posterior right seventh, eighth and ninth ribs are noted. The right ninth rib fracture is displaced. There is a trace right hemothorax. A lobulated subpleural 1.5 cm left lower lobe nodule on image 6 is present. Findings are better depicted on the chest CT which will be reported separately. There is a small hiatal hernia. No hemoperitoneum or pneumoperitoneum is present. Solid abdominal viscera suboptimally assessed by CT. No evidence for traumatic injury to the liver, spleen, adrenal glands, kidneys or pancreas. Hyperdense right renal lesions are suboptimally assessed on unenhanced CT but favor hyperdense cyst. There is no evidence for a bowel obstruction. Multifocal wall thickening of the ascending colon and descending colon is noted with minimal pericolonic stranding. There are numerous mildly enlarged pericolonic lymph nodes. These measure up to 1.3 x 0.9 cm. There are prominent mesenteric lymph nodes. No acute lumbar spine, pelvic or hip fracture is identified. IMPRESSION: 1. No acute traumatic findings within the abdomen or pelvis on unenhanced exam. 2. Acute fractures of the posterior right seventh, eighth and ninth ribs with a trace right hemothorax. 3. Lobulated subpleural 1.5 left lower lobe pulmonary nodule. This is indeterminate. A follow-up chest CT in 6 months is recommended. 4. Multifocal wall thickening of the colon, predominantly involving the ascending colon and descending colon with colonic stranding and enlarged pericolonic lymph nodes. Given long segment distribution, the findings may reflect a colitis. However, a neoplastic etiology could appear similar. A short- term follow-up CT of the abdomen and pelvis in one month is recommended. Alternatively, colonoscopy could be performed. ACT 112: Positive. There are findings on this exam that require communication between the performing entity and the patient following Patient Test Result Information Act ([place] Act 112) guidelines. Electronically signed by: Kleber Mckee M.D. 03/30/2024 4:[address] 03/30/24 14:48 CT chest diagnostic wo con, CT thoracic spine wo con CLINICAL HISTORY: Fall, right sided rib/back pain TECHNIQUE: Multidetector row helical CT of the chest was performed. Coronal and sagittal reformations were obtained. Automated dose lowering techniques and/or adjustment according to patient size were utilized for this exam. Dedicated images of the thoracic spine were obtained. CT DOSE: 1235.96 mGy.cm Comparison: None available at the time of this dictation. FINDINGS: Lungs and pleura: Atelectasis versus scarring is seen in the dependent portions of the lungs. Tree in bud nodules are in the right upper lobe and there is a cluster of nodules in the left lower lobe as well. Possible trace right hemothorax. Heart and pericardium: Heart size is normal. No pericardial effusion. Vessels: Mild atherosclerotic changes in the aorta and coronary arteries. Pulmonary trunk measures 31 mm in diameter. Mediastinum and lily: Subcentimeter lymph nodes are seen. Chest wall and lower neck: There is a 16 mm left thyroid nodule. Abdomen: For findings below the diaphragm, please refer to CT of the abdomen dated the same. Bones: Right seventh and eighth posterior rib fractures are seen. IMPRESSION: 1. Right posterior seventh and eighth rib fractures are seen with trace hemothorax. No pneumothorax or other acute abnormalities are seen. 2. Nodules are seen as above which may represent infectious/inflammatory process. ACT 112: Negative or not required by law. Electronically signed by: Gordon Evans M.D. 03/30/2024 4:[address] 03/30/24 14:48 CT chest diagnostic wo con, CT thoracic spine wo con CLINICAL HISTORY: Fall, right sided rib/back pain TECHNIQUE: Multidetector row helical CT of the chest was performed. Coronal and sagittal reformations were obtained. Automated dose lowering techniques and/or adjustment according to patient size were utilized for this exam. Dedicated images of the thoracic spine were obtained. CT DOSE: 1235.96 mGy.cm Comparison: None available at the time of this dictation. FINDINGS: Lungs and pleura: Atelectasis versus scarring is seen in the dependent portions of the lungs. Tree in bud nodules are in the right upper lobe and there is a cluster of nodules in the left lower lobe as well. Possible trace right hemothorax. Heart and pericardium: Heart size is normal. No pericardial effusion. Vessels: Mild atherosclerotic changes in the aorta and coronary arteries. Pulmonary trunk measures 31 mm in diameter. Mediastinum and lily: Subcentimeter lymph nodes are seen. Chest wall and lower neck: There is a 16 mm left thyroid nodule. Abdomen: For findings below the diaphragm, please refer to CT of the abdomen dated the same. Bones: Right seventh and eighth posterior rib fractures are seen. IMPRESSION: 1. Right posterior seventh and eighth rib fractures are seen with trace hemothorax. No pneumothorax or other acute abnormalities are seen. 2. Nodules are seen as above which may represent infectious/inflammatory process. ACT 112: Negative or not required by law. Electronically signed by: Gordon Evans M.D. 03/30/2024 4:31 PM Chest X-Ray 03/30/24 21:00 XR chest 1V portable CLINICAL HISTORY: Fall. Rib fractures. Evaluate for increase in hemo/pneumothorax. COMPARISON STUDY: Chest radiograph and chest CT March 30, 2024. FINDINGS: There is no pneumothorax. The small right hemothorax on yesterday's chest CT is not evident by radiography. The posterior right second rib fractures are also better depicted on CT. There is no consolidation. Pulmonary vascular congestion is present. Cardiac mediastinal silhouette is stable.. IMPRESSION: 1. No pneumothorax. The small right hemothorax and acute right-sided rib fractures are not well-visualized by radiography. These are better depicted on recent chest CT. 2. Pulmonary vascular congestion. ACT 112: Negative or not required by law. Electronically signed by: Kleber Mckee M.D. 03/31/2024 6:47 AM Chest X-Ray 03/31/24 06:15 XR chest 1V portable CLINICAL HISTORY: eval for increase in hemo/pneumothorax TECHNIQUE: Single frontal radiograph of the chest was obtained. Comparison: Comparison is made to chest radiograph 03/30/[address] chest 03/30/2024 FINDINGS: No lines and tubes are seen. The cardiomediastinal silhouette is normal. The lungs are clear. No evidence of pleural effusion or pneumothorax. Partial visualization of right rib fractures. IMPRESSION: No evidence of pneumothorax. There is no radiographically evident pleural fluid to suggest significant increase in hemothorax. ACT 112: Negative or not required by law. Electronically signed by: Gordon Evans M.D. 03/31/2024 8:28 AM Hospital Course (1) Fall: 88yo presented from dementia unit after a fall from standing position (but was unwitnessed) and found on the ground. Believes may have fallen against the wall/hit her back. with moderate to severe back pain and concerns initially for right hip pain/ambulatory dysfunction. Suspect patient w/ +UTI leading to her fall given UA findings and suprapubic discomfort leading to her fall and subseqent rib fractures. Initially negative CT head, cervical spine, lumbar spine, hip and plain films of the chest for acute injury CT thoracic spine/CT chest notin. Right posterior seventh and eighth rib fractures are seen with trace hemothorax. No pneumothorax or other acute abnormalities are seen. 2. Nodules are seen as above which may represent infectious/inflammatory process. Pulmonology consulted given hemothorax, appreciate assistance/recs--no need for intervention, pain control/pulmonary toilet Incentive spirometry ordered, Cough/deep breath, lidocaine patch, tylenol scheduled w/ prn tramadol for breakthrough and tolerating and continued at ct Vit D low 12.1, replacement started and continued at discharge UA obtained which appeared grossly infected and given suprapubic discomfort, placed on Rocephin IV and got 2 doses. Urine cx rec repeat collection and given already on abx review prior cx w/ ecoli resistant to FLQ and had been provided nitrofurantoin w/ last UTI and sent on keflex PO to complete course Bowel regimen, suppository x 1 w/ large formed BM prior to dc. Continue bowel regimen while on pain medication. Of note, CTAP noting bowel wall thickening concerning for underlying neoplasm and does have hx R sided colon ca. CEA obtained which was NOT elevated, however did discuss w/ both daughter on findings and prior intolerance to prep for c-scope and recommendation for repeat CTAP in 1month for eval/ref to GI outpt. Fall precautions, PT/OT consulted and from [facility] and arranged transportation for SNF at [facility] prior to returning to prior level of care (2) Right rib fracture: noted as above on imaging, pain control/pulm consult and repeat CXR w/o i ncreased size and to continue pulm toilet at ct. Pain control w/ topical lidocaine patch, scheduled tylenol and prn tramadol w/ bowel regimen Notable Lobulated subpleural 1.5 left lower lobe pulmonary nodule. This is indeterminate. A follow-up chest CT in 6 months is recommended. Also has multifocal wall thickening of the colon, predominantly involving the ascending colon and descending colon with colonic stranding and enlarged pericolonic lymph nodes. Given long segment distribution, the findings may reflect a colitis. However, a neoplastic etiology could appear similar. A short- term follow-up CT of the abdomen and pelvis in one month is recommended. Alternatively, colonoscopy could be performed. As above, repeat CTAP 1 month recommended in f/u PCP (3) Hypothyroidism: on 75mcg daily, most recent TSH in system elevated and added to AM labs and was wnl but borderline 4.46 and continued synthroid 75mcg daily while inpatient but rec having repeat TFT w/ PCP in 3-4 weeks/adjustment as needed. Notable does have 16mm L thyroid nodule but no thryomegly on exam (4) Back contusion: noted, pain control/therapy as above (5) Ulcerative colitis: History of ulcerative colitis with no evidence of flare. Is on meloxicam daily which was held given such and discontinued at ct, if tramadol 25mg (reduced dose) effective for pain would consider this rather than NSAID given fall/hemothorax from rib fractures and baseline CKD which improved w/ IVF and IV abx for suspected UTI Rec repeat CTAP as above, GI in f/u (6) Chronic reflux esophagitis: famotidine daily hx noted of barretts, monitor for any issues reflux precautions (7) Memory impairment: from memory unit, frequent orientation CT head negative on admission TSH wnl as above, continue home synthroid and repeat TFT w/ PCP in 1 month as above B12 for complexness/balance issues reported --> LOW normal, 1000mcg PO daily started and would continue at discharge +UA as above, abx as outlined Mood/exam stable, no increased concerns by daughters during visit (8) Abnormal finding on CT scan: Noted abnormalities on CT imaging w/ Lobulated subpleural 1.5 left lower lobe pulmonary nodule. This is indeterminate. A follow-up chest CT in 6 months is recommended. Also has multifocal wall thickening of the colon, predominantly involving the ascending colon and descending colon with colonic stranding and enlarged pericolonic lymph nodes. Given long segment distribution, the findings may reflect a colitis. However, a neoplastic etiology could appear similar. A short- term follow-up CT of the abdomen and pelvis in one month is recommended. Alternatively, colonoscopy could be performed. Does have hx ulcerative colitis, per discussion w/ daughter and prior intolerance to prep, would rec repeat ctap 1 month. Notable CEA level obtained which was NOT elevated (9) Vitamin D deficiency: checked due to fractures, LOW 12.8, PO replacement started and continued replacement at discharge Plan discharged to [facility], eventual return to memory unit when more independent Total Time Total Time Spent Total Time Spent (In Minutes): 40 Discharge Plan Discharge Items Patient Disposition: Transfer Long Term Fac Reason For Visit: FALL, UNCONTROLLED BACK PAIN Discharge Diagnosis: Fall, Multiple Broken Ribs (RIGHT), Urinary Tract Infection Goals: You have been hospitalized for an acute medical problem. During your stay at [facility], we have made an effort to correct the problem that brought you to the hospital while keeping you as comfortable as possible. Medications were used to bring your condition under control and your discharge instructions will include directions for any medications you should take after leaving the hospital. Please make sure you see your Primary Care Provider as part of your follow up plan. Activity: As commented below Activity Comment: ambulation with walker as tolerated Non-emergency contact: Primary Care Provider Call non-emergency contact if: you have any medication questions, your symptoms worsen, your pain is concerning for you and you have a fever Follow-up/Referrals: Valentina Shaffer MD [Primary Care Provider] - Diet: Heart Healthy Addtl Attending Provider Instructions: You have been hospitalized after a fall. Imaging of the head/neck were negative for acute stroke or significant findings. You did not have any evidence for hip fracture/pevlis fracture, however you WERE found to have multiple broken ribs on the RIGHT. You should continue topical lidocaine patch daily and tylenol. We have sent short course of tramadol if needed for breakthrough pain. Your repeat imaging has been stable without increased hemothorax and pulmonology was consulted inpatient and no further treatment except continued use of incentive spirometry and prevention of pneumonia with pain control as well. We did collect a urine sample which appeared infected and likely contributed to the fall/weakness in the first place. You were given IV antibiotics and are being sent on KEFLEX (CEPHALEXIN), 500mg by mouth once daily for another 3 days to complete 5 day course. Your vitamin B12 was borderline low as well as your Vitamin D level was low and we started supplementation and continued at discharge. There were lung nodules on imaging as well as bowel wall thickening on abdominal imaging. Given your history of colon cancer we have discussed and recommended repeating CT scan imaging in 1 month to evaluate given inability to tolerate the colonoscopy prep. Therapy evaluations were undertaken and arrangements have been made for care home at discharge at [facility] until able to return to your prior level of living. You should follow up with primary care in 7-10 days from hospitalization to monitor your progress. Please return to the ER with any fevers/chills, chest pain, shortness of breath or for any other symptoms concerning for you. It has been a pleasure being a part of the medical team providing for you while you have been in the hospital. Take care! Pending Studies at Discharge: No Stand-Alone Forms: My [facility] Skilled Items Patient informed of condition?: Yes DNR: Yes Discharge Level of Care: Skilled Communicable Disease: No Discharge Prognosis: Stable Lines: None Urinary Catheter: No Medications and DC Order Prescriptions: New acetaminophen 325 mg Tablet 650 mg PO Q6H Qty: 30 0RF tramadol 50 mg Tablet 25 mg PO Q4H PRN (Reason: pain) Qty: 4 0RF docusate sodium 100 mg Capsule 100 mg PO BID Qty: 14 0RF polyethylene glycol 3350 [Miralax] 17 gram Powder In Packet 17 g PO DAILY Qty: 14 0RF lidocaine 5 % Adhesive Patch,Medicated 1 patch transdermal QAM Qty: 15 0RF cholecalciferol (vitamin D3) 125 mcg (5,000 unit) Tablet 125 mcg PO QAM Qty: 30 0RF cyanocobalamin (vitamin B-12) 500 mcg Tablet 1,000 mcg PO QAM 30 Days Qty: 60 0RF cephalexin 500 mg capsule 500 mg PO DAILY Qty: 3 0RF Continued levothyroxine 75 mcg tablet 75 mcg PO DAILY famotidine 20 mg tablet 20 mg PO DAILY omeprazole 20 mg capsule,delayed release(DR/EC) 20 mg PO DAILY escitalopram oxalate 5 mg tablet 5 mg PO DAILY Discontinued meloxicam 7.5 mg tablet 7.5 mg PO DAILY Discharge Orders: Discharge Order (Routine); Ordered 04/02/24 Ordered By: Mariam Vigil Admission Data Admit Date/Time: 04/01/24 11:06 Attending Provider: Gerson Martines Admit Provider: Aldo Sims Primary Care Provider: Valentina Shaffer Other Providers: Aldo Sims; Dougie Woodall; Zoë Rodriguez [facility] Other Interventions: Discharge Summary Assessment (RN) Last Done: 06/28/24 13:01 Supervising Physician Co-Signing Physician Notes The patient was not seen by me. The chart was reviewed. Case discussed with ÁNGELA Christianson. 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
[2024-04-02] MEDS: bisacodyL 10 MG SUPP PR STA (09:54)
== END 2024-04-02 13:29 | DRG 183 ==
LOC: 3N 10:59 → ED 10:59 → SUATTDRO 14:36 → 3N 16:42

== ENCOUNTER 2025-03-29 21:59 | Observation (INO) ==
--- NOTE | 2025-03-29 22:15 | Emergency Department Note ---
History of Present Illness General Chief complaint: Illness Stated complaint: "ABNORMAL VITALS" NO COMPLAINTS Time Seen by Provider: 03/29/25 22:06 History of Present Illness This 89-year-old female with dementia presents from the [place] [facility] for evaluation for fever. halfway reported that she had a low-grade fever and sent her in. She was not given any medicine for the fever. She does not have a fever here. Patient is demented and history is obtained from nursing and EMS. Home Medications Medication Instructions Recorded Confirmed Type escitalopram oxalate 5 mg tablet 7.5 mg PO DAILY 03/30/24 03/30/25 History famotidine 20 mg tablet 20 mg PO QAM 03/30/24 03/30/25 History docusate sodium 100 mg capsule 100 mg PO BID #14 caps 04/01/24 03/30/25 Rx polyethylene glycol 3350 17 gram 17 g PO DAILY #14 ea 04/01/24 03/30/25 Rx oral powder packet (Miralax) omeprazole 20 mg capsule,delayed 20 mg PO DAILY #30 caps 06/29/24 03/30/25 Rx release levothyroxine 75 mcg tablet 75 mcg PO DAILY #90 tabs 03/22/25 03/30/25 Rx acetaminophen 325 mg tablet 650 mg PO Q4 PRN Pain 03/30/25 03/30/25 History acetaminophen 325 mg tablet 650 mg PO Q4 PRN TEMP >=100 03/30/25 03/30/25 History buspirone 5 mg tablet 2.5 mg PO TID 03/30/25 03/30/25 History cholecalciferol (vitamin D3) 125 125 mcg PO DAILY 03/30/25 03/30/25 History mcg (5,000 unit) tablet ferrous sulfate 325 mg (65 mg 325 mg PO QAM 03/30/25 03/30/25 History iron) tablet Allergies Allergy/AdvReac Type Severity Reaction Status Date / Time shellfish derived Allergy Unknown Unknown Verified 03/30/25 01:00 oxycodone AdvReac Unknown N&V Verified 03/30/25 01:00 Past Med/Surg History Problem List (Updated 03/30/25 @ 01:03 by Daxa Miller PA-C) Hypotension Anemia (Acute) Fever (Acute) Acute UTI (Acute) Vitamin D deficiency Abnormal finding on CT scan Right rib fracture (Acute ~03/29/24) Fractures of the posterior seventh, eighth, ninth ribs Right rib fracture (Acute 03/29/24) fractures of the posterior right seventh, eighth and ninth ribs from a fall Back contusion (Acute) Contusion of hip, right (Acute) Fall (Acute) Ulcerative colitis (Chronic) Thoracic back pain Seasonal allergies Myalgia and myositis Lesion of lip Joint pain, knee Impacted cerumen of both ears Hyponatremia Fatigue Anemia Routine health maintenance (Chronic) Encounter for pre-operative examination (Acute) Low back pain Memory impairment Rectal bleeding Cerumen impaction Upper extremity weakness Physical deconditioning Impaired mobility and ADLs Osteoarthritis of shoulders, bilateral Impingement syndrome of right shoulder Impingement syndrome, shoulder, left Medical History Dementia Arthritis Trouble swallowing Barretts esophagus Benign positional vertigo Chronic reflux esophagitis Hyperlipidemia Hypothyroidism Osteoporosis Colon cancer (~2004) HX 2005/HX RESECTION Breast cancer (~2008) HX 2009/LEFT MASTECTOMY Surgical History History of endoscopy History of colonoscopy History of blepharoplasty History of colon surgery Part of colon removed History of mastectomy LEFT History of foot surgery Family History Aunt Breast cancer Other No pertinent family history Denies family history of Ovarian cancer Prostate cancer Myocardial infarction Colorectal cancer Social History Smoking Status: Unknown if ever smoked Second Hand Exposure: No; Do You Dip or Chew Tobacco: No; Hx Alcohol Use: No Hx Substance Use: No Preferred Language: Setswana Communication Ability: Impaired Communication Ability Comment: DAUGHTERZHOU DOES PAT PHONE INTERVIEW (POA)/PT HAS DEMENTIA Visual Impairment: Limited Hearing Ability: Normal [employer] Team Member Required: No Beliefs That Will Affect Care: None marital status: / Current Living Situation: Retirement Current Living Situation Comment: Memory care unit at [facility] current occupational status: retired How many Children do You have: 3 Feels Safe at Home: Yes Childhood Exposure to Second-Hand Smoke: Yes Diet: regular caffeine: No during the past year weight has: remained stable Dental Care, Regularly: Yes Physical Activity Frequency: Daily Physical Activity Frequency Comment: Walking Seatbelt Use: always Sunscreen Use: Yes Assistive Devices: None Review of Systems Unobtainable due to cognitive status Physical Exam Vital Signs Vital Signs - 24 hr 03/29/25 22:05 03/29/25 22:05 03/29/25 22:15 Temperature 36.7 C Temperature Source Oral Pulse Rate 77 75 Pulse Rate [Apical] Respiratory Rate 16 Blood Pressure 96/60 L Blood Pressure [Right Arm] Blood Pressure Mean 72 Blood Pressure Mean [Right Arm] Pulse Oximetry 97 95 Oxygen Delivery Method Room Air Room Air Sepsis Recent Fever Within 48 Hours No Sepsis New/Unexplained Change in Mental Status No Sepsis Action Taken by Nursing No Action Required 03/29/25 22:15 03/29/25 22:30 03/29/25 22:36 Temperature 37.3 C 37.3 C Temperature Source Rectal Rectal Pulse Rate Pulse Rate [Apical] 74 Respiratory Rate 20 Blood Pressure Blood Pressure [Right Arm] 102/61 Blood Pressure Mean Blood Pressure Mean [Right Arm] 74 Pulse Oximetry 93 Oxygen Delivery Method Room Air Sepsis Recent Fever Within 48 Hours Sepsis New/Unexplained Change in Mental Status Sepsis Action Taken by Nursing 03/29/25 23:00 03/29/25 23:30 03/30/25 00:00 Temperature Temperature Source Pulse Rate Pulse Rate [Apical] 80 83 88 Respiratory Rate 16 16 16 Blood Pressure Blood Pressure [Right Arm] 104/58 L 100/54 L 96/62 L Blood Pressure Mean Blood Pressure Mean [Right Arm] 73 69 73 Pulse Oximetry 96 93 97 Oxygen Delivery Method Room Air Room Air Room Air Sepsis Recent Fever Within 48 Hours Sepsis New/Unexplained Change in Mental Status Sepsis Action Taken by Nursing 03/30/25 00:30 03/30/25 01:00 03/30/25 01:30 Temperature Temperature Source Pulse Rate Pulse Rate [Apical] 82 79 83 Respiratory Rate 16 16 16 Blood Pressure Blood Pressure [Right Arm] 98/59 L 99/64 L 119/80 Blood Pressure Mean Blood Pressure Mean [Right Arm] 72 75 93 Pulse Oximetry 93 96 95 Oxygen Delivery Method Room Air Room Air Room Air Sepsis Recent Fever Within 48 Hours Sepsis New/Unexplained Change in Mental Status Sepsis Action Taken by Nursing VITALS: Vitals are noted on the nurse's note and reviewed by myself. Vital signs reviewed. GENERAL: Elderly female demented, in no acute distress, nondiaphoretic, well- developed well-nourished. SKIN: The skin was without rashes, erythema, edema, or bruising. There is no tenting of the skin. Capillary reflex less than 2 seconds. HEAD: Normocephalic atraumatic. EARS: External auditory canals clear EYES: Pupils equal round and reactive to light and accommodation. Conjunctivae without injection, sclerae without icterus. Extraocular movements intact. NOSE: Patent, no discharge. MOUTH: Mucous membranes mildly dry. Pharynx without erythema or exudate. Uvula midline. Airway patent. Tongue does not deviate. NECK: Supple without nuchal rigidity. No lymphadenopathy. No thyromegaly. Cervical spine is nontender. No JVD. HEART: Regular rate and rhythm LUNGS: Clear to auscultation bilaterally without wheezes, rales or rhonchi. No retractions or accessory muscle use. ABDOMEN: Positive bowel sounds x 4. Normal tympanic percussion. Soft, nontender, without masses or organomegaly. Snyder sign negative. No guarding or rebound tenderness. No CVA tenderness MUSCULOSKELETAL: No muscle atrophy, erythema, or edema noted. NEURO: Patient was alert but not oriented to person place and time. No focal neurological deficits. Course Administered Medications Discontinued Medications Sodium Chloride (Nss) 500 mls @ 999 mls/hr IV .Q31M ONE Stop: 03/29/25 22:43 Last Infusion: 03/29/25 23:20 Dose: Infused Documented By: Admin: 03/29/25 22:36 Dose: 999 mls/hr Documented By: AN Ceftriaxone Sodium (Rocephin) 2,000 mg in 50 mls @ 100 mls/hr IV NOW STA Stop: 03/30/25 01:15 Last Infusion: 03/30/25 01:40 Dose: Infused Documented By: Admin: 03/30/25 01:07 Dose: 100 mls/hr Documented By: AN Sodium Chloride (Nss) 500 mls @ 999 mls/hr IV .Q31M ONE Stop: 03/30/25 01:21 Last Infusion: 03/30/25 01:40 Dose: Infused Documented By: Admin: 03/30/25 01:07 Dose: 999 mls/hr Documented By: AN Medical Decision Making Medical Records Attestation: I reviewed the patient's medical records. Home Medications Current Medication List: was personally reviewed by me Laboratory Data Attestation: I reviewed the patient's lab results. 03/29/25 22:20 03/29/25 22:20 Lab Results 03/29/25 03/29/25 Range/Units 22:20 23:59 WBC 7.75 (4.8-10.8) K/ul RBC 3.50 L (4.20-5.40) M/uL Hgb 9.4 L (12.0-16.0) g/dl Hct 30.0 L (37.0-47.0) % MCV 85.7 (80.0-100.0) fL MCH 26.9 (25.0-34.0) pg MCHC 31.3 L (32.0-36.0) g/dL RDW Std Deviation 44.7 (36.4-46.3) fL RDW Coeff of [place] 14.3 (11.5-14.5) % Plt Count 283 (130-400) K/uL MPV 9.8 (9.4-12.4) fL Immature Gran % (Auto) 0.3 % Neut % (Auto) 59.7 % Lymph % (Auto) 28.9 % Irion % (Auto) 8.4 % Eos % (Auto) 1.8 % Baso % (Auto) 0.9 % Neut # (Auto) 4.63 (1.40-6.50) K/uL Lymph # (Auto) 2.24 (1.20-3.40) K/uL Irion # (Auto) 0.65 H (0.11-0.59) K/uL Eos # (Auto) 0.14 (0.00-0.50) K/uL Baso # (Auto) 0.07 (0.00-0.20) K/uL Immature Gran # (Auto) 0.02 (0.01-0.20) K/uL Sodium 140 (136-145) mmol/L Potassium 3.7 (3.5-5.1) mmol/L Chloride 108 H (98-107) mmol/L Carbon Dioxide 26 (21-32) mmol/L Anion Gap 6 (3-11) BUN 23 (6-23) mg/dl Creatinine 0.78 (0.6-1.2) mg/dl Est Cr Clr Drug Dosing Not Reportable eGFR 73.47 BUN/Creatinine Ratio 29.5 H (10-20) Glucose 113 H (70-99(Fasting)) mg/dl Lactate 0.9 (0.4-2.0) mmol/L Calcium 8.4 L (8.6-10.3) mg/dl Magnesium 1.9 (1.7-2.4) mg/dl Total Bilirubin 0.3 (0.2-1.0) mg/dl Direct Bilirubin 0.1 (0-0.2) mg/dl AST 14 (13-39) U/L ALT 9 (7-52) U/L Alkaline Phosphatase 81 (34-104) U/L Troponin I High Sens 8.4 (0-14) pg/ml Total Protein 6.1 (6.0-8.3) gm/dl Albumin 3.2 L (3.4-5.0) gm/dl Procalcitonin 0.25 (0-0.5) ng/ml TSH 0.938 (0.300-4.500) uIu/ml Urine Color Yellow Urine Appearance Cloudy A (Clear) Urine pH 6.0 (4.5-7.5) Ur Specific [place] 1.016 (1.000-1.030) Urine Protein 1+ H (Negative) Urine Glucose (UA) Negative (Negative) Urine Ketones Negative (Negative) Urine Blood 1+ H (Negative) Urine Nitrite Positive A (Negative) Urine Bilirubin Negative (Negative) Urine Urobilinogen Negative (Negative) Ur Leukocyte Esterase 3+ H (Negative) Urine WBC (Auto) >50 H (0-5) /hpf Urine RBC (Auto) 3-5 H (0-2) /hpf U Hyaline Cast (Auto) 3-5 H (0-2) /lpf U Epithel Cells (Auto) 0-2 (0-2) /hpf Urine Bacteria (Auto) 4+ H (None Seen) Urine Comment Adenovirus (PCR) Not Detected (NotDetected) B. pertussis DNA (PCR) Not Detected (NotDetected) B.parapertussis DNA PCR Not Detected (NotDetected) C. pneumoniae DNA (PCR) Not Detected (NotDetected) Coronavirus OC43 (PCR) Not Detected (NotDetected) Coronavirus HKU1 (PCR) Not Detected (NotDetected) Coronavirus 229E (PCR) Not Detected (NotDetected) SARS-CoV-2 (PCR) Not Detected (NotDetected) Coronavirus NL63 (PCR) Not Detected (NotDetected) Human Metapneumovir PCR Not Detected (NotDetected) Influenza Type A (PCR) Not Detected (NotDetected) Influenza Type B (PCR) Not Detected (NotDetected) M. pneumoniae (PCR) Not Detected (NotDetected) Parainfluenza 1 (PCR) Not Detected (NotDetected) Parainfluenza 2 (PCR) Not Detected (NotDetected) Parainfluenza 3 (PCR) Not Detected (NotDetected) Parainfluenza 4 (PCR) Not Detected (NotDetected) RSV (PCR) Not Detected (NotDetected) Entero/Rhino (PCR) Not Detected (NotDetected) Imaging Data Attestation: I personally reviewed and interpreted this imaging study as follows: MDM Narrative Prior records/ancillary studies reviewed and summarized above. Nursing notes reviewed. Additional history obtained from EMS. The patient's history was concerning for possible fever. Differential diagnosis: Etiologies such as metabolic, infection, bacteremia, sepsis, UTI, viral, hypo/hyperglycemia, electrolyte abnormalities, cardiac sources, intracerebral event, toxicologic, neurologic, as well as others were entertained. Physical examination: As above. ER treatment provided: IV Lock An order was placed for continuous cardiac monitoring. The monitor shows a rate of 60-100 with a sinus rhythm per my interpretation. IV fluids, Rocephin for UTI On reassessment the patient felt better. Diagnostics interpretation by me: ECG: Ordered for weakness EKG: Normal sinus, normal intervals, no acute ST-T wave changes. Impression normal sinus rhythm independently interpreted by myself The labs Independently Interpreted by myself revealed urine concerning for infection sent for culture. Prior culture was reviewed Mild anemia, no worrisome leukocytosis, negative lactic. Negative procalcitonin Blood cultures pending Name: DEANA MAN Acct: [id number] Status: [facility] ER : 1935 [facility] Date: 04/13/24 Age: 89 Sex: F Dis Date: Loc: Emergency Department Spec: [id number] Collected: 04/13/24-1235 Received: 04/13/24-[address]: Dominick Mccurdy, Source: Urine,Clean Catch OV Order: Ordered: Urine Culture Procedure Result Verified Site Urine Culture Final 04/15/24-1102 Organism 1 Escherichia coli [place] Count >100,000 CFU/ml Sens Sensitivities to Follow Organism 2 Gardnerella-like bacilli [place] Count >100,000 CFU/ml Sens No Sensitivities to Follow E coli RX M.I.C. --- --------- Amox/Clav S <=8/4 Ampicillin R >16 Amp/Sul R >16/8 Cefazolin S 4 Cefazolin I Cefepime S <=2 Ceftriaxone S <=1 Ciprofloxacin R >2 Ertapenem S <=0.5 Gentamicin S <=4 Levofloxacin R >4 Meropenem S <=1 Nitrofurantoin S <=32 Tobramycin S <=4 Trimeth/Sulfa R >2/38 Pip/Tazo S <=16 Escherichia coli: Negative/Urine Combo 90 Complicated UTI Interpretations S = SENSITIVE I = INTERMEDIATE R = RESISTANT Imaging studies: Imaging was reviewed and read by radiology Consultation: A consultation was placed with the hospitalist. The case was discussed and diagnostics were reviewed. The patient was evaluated in the ER for further treatment. I consulted with [place] [facility] and did review the test results with the nurse caring for the patient. Exam and history seem consistent with UTI with reported fever. Patient was started on antibiotics. She was hydrated as above. Blood pressure was on the soft side and was given IV fluids as above. Medicine was consulted and the case was discussed. She will be admitted to the medical service. By the evaluation outlined above emergent etiologies such as electrolyte abnormalities, cardiac sources, intracerebral event, toxologic, neurologic, abnormalities blood glucose, metabolic, as well as others were deemed relatively unlikely. Results were also reviewed with the daughter. All questions were answered. The patient/[place] [facility] informed about the findings as listed above. All questions were answered and pleased with the treatment. The chart was completed utilizing [employer] recognition software. Grammatical errors, random word insertions, pronoun errors, and incomplete sentences are an occassional consequence of this system due to software limitations, ambient noise, and hardware issues. Any formal questions or concerns about the content, text, or information contained within the body of this dictation should be directly addressed to the physician assistant manager airside operations for clarification. Impression & Plan Acute UTI, Fever, Anemia Discharge Plan Visit Data Chief Complaint: Illness Stated Complaint: "ABNORMAL VITALS" NO COMPLAINTS ED Provider: Micah Ferrara ED Midlevel Provider: Valeri Miller Discharge Problem: Acute UTI, Fever, Anemia Patient Disposition: Being Evaluated by Hospitalist Condition: Good Forms Stand Alone Forms: My [facility] Prescriptions Prescriptions: No Action omeprazole 20 mg capsule,delayed release(DR/EC) 20 mg PO DAILY Qty: 30 5RF levothyroxine 75 mcg tablet 75 mcg PO DAILY Qty: 90 1RF famotidine 20 mg tablet 20 mg PO QAM escitalopram oxalate 5 mg tablet 7.5 mg PO DAILY docusate sodium 100 mg Capsule 100 mg PO BID Qty: 14 0RF polyethylene glycol 3350 [Miralax] 17 gram Powder In Packet 17 g PO DAILY Qty: 14 0RF buspirone 5 mg tablet 2.5 mg PO TID ferrous sulfate 325 mg (65 mg iron) Tablet 325 mg PO QAM cholecalciferol (vitamin D3) 125 mcg (5,000 unit) tablet 125 mcg PO DAILY acetaminophen 325 mg Tablet 650 mg PO Q4 MDD 3G PRN (Reason: TEMP >=100) acetaminophen 325 mg Tablet 650 mg PO Q4 MDD 3G PRN (Reason: Pain) Referrals Referrals: PCP,NO [Primary Care Provider] -
[2025-03-29] MEDS: SODIUM CHLORIDE 0.9% 500 ML IV ONE (22:36)
[2025-03-29 23:01] LABS: Basophils # (auto) 0.07 K/uL (0.00-0.20); Basophils % (auto) 0.9 %; Eosinophils # (auto) 0.14 K/uL (0.00-0.50); Eosinophils % (auto) 1.8 %; Hemoglobin 9.4 g/dl (12.0-16.0); Immature Granulocytes # (auto) 0.02 K/uL (0.01-0.20); Immature Granulocytes % (auto) 0.3 %; Lymphocytes # (auto) 2.24 K/uL (1.20-3.40); Lymphocytes % (auto) 28.9 %; Mean Corpuscular Hemoglobin 26.9 pg (25.0-34.0); Mean Corpuscular Hgb Conc 31.3 g/dL (32.0-36.0); Mean Corpuscular Volume 85.7 fL (80.0-100.0); Mean Platelet Volume 9.8 fL (9.4-12.4); Monocytes # (auto) 0.65 K/uL (0.11-0.59); Monocytes % (auto) 8.4 %; Neutrophils # (auto) 4.63 K/uL (1.40-6.50); Neutrophils % (auto) 59.7 %; Platelet Count 283 K/uL (130-400); RDW Coefficient of Variation 14.3 % (11.5-14.5); RDW Standard Deviation 44.7 fL (36.4-46.3); White Blood Count 7.75 K/ul (4.8-10.8)
[2025-03-29 23:18] LABS: Alanine Aminotransferase 9 U/L (7-52); Alkaline Phosphatase 81 U/L (34-104); Anion Gap 6 (3-11); Aspartate Aminotransferase 14 U/L (13-39); BUN Creatinine Ratio 29.5 (10-20); Bilirubin Direct 0.1 mg/dl (0-0.2); Bilirubin,Total 0.3 mg/dl (0.2-1.0); Blood Urea Nitrogen 23 mg/dl (6-23); Calcium 8.4 mg/dl (8.6-10.3); Carbon Dioxide 26 mmol/L (21-32); Chloride 108 mmol/L (98-107); Glucose 113 mg/dl (70-99(Fasting)); Magnesium 1.9 mg/dl (1.7-2.4); Potassium 3.7 mmol/L (3.5-5.1); Sodium 140 mmol/L (136-145); Total Protein 6.1 gm/dl (6.0-8.3)
[2025-03-29 23:25] LABS: Troponin I High Sensitivity 8.4 pg/ml (0-14)
[2025-03-29 23:34] LABS: Thyroid Stimulating Hormone 0.938 uIu/ml (0.300-4.500)
[2025-03-29 23:52] LABS: Adenovirus PCR Not Detected (NotDetected); Bordetella parapertussis PCR Not Detected (NotDetected); Bordetella pertussis PCR Not Detected (NotDetected); Chlamydia pneumoniae PCR Not Detected (NotDetected); Coronavirus 229E PCR Not Detected (NotDetected); Coronavirus CoV-2 (COVID19)PCR Not Detected (NotDetected); Coronavirus HKU1 PCR Not Detected (NotDetected); Coronavirus NL63 PCR Not Detected (NotDetected); Coronavirus OC43PCR Not Detected (NotDetected); Human Metapneumovirus PCR Not Detected (NotDetected); Influenza A PCR Not Detected (NotDetected); Influenza B PCR Not Detected (NotDetected); Mycoplasma pneumoniae PCR Not Detected (NotDetected); Parainfluenza Virus 1 PCR Not Detected (NotDetected); Parainfluenza Virus 2 PCR Not Detected (NotDetected); Parainfluenza Virus 3 PCR Not Detected (NotDetected); Parainfluenza Virus 4 PCR Not Detected (NotDetected); Respiratory Syncytial VirusPCR Not Detected (NotDetected); Rhinovirus/Enterovirus PCR Not Detected (NotDetected)
[2025-03-30 00:19] LABS: Appearance Urine Cloudy (Clear); Bacteria Urine Automated 4+ (None Seen); Bilirubin Urine Negative (Negative); Blood Urine 1+ (Negative); Color Urine Yellow; Epithelial Cell Urine Auto 0-2 /hpf (0-2); Glucose Urine UA Negative (Negative); Ketones Urine Negative (Negative); Leukocyte Esterase Urine 3+ (Negative); Nitrite Urine Positive (Negative); Protein Urine 1+ (Negative); Specific Gravity Urine 1.016 (1.000-1.030); Urobilinogen Urine Negative (Negative); WBC Urine Automated >50 /hpf (0-5)
--- NOTE | 2025-03-30 01:03 | History & Physical Report ---
Date of Service March 30, 2025 Assessment & Plan (1) Acute UTI: (2) Hypotension: Plan 89-year-old female PMHx anemia, hyponatremia, dementia, Hernandez's esophagus, BPPV, GERD, hyperlipidemia, hypothyroidism, OP, colon cancer (2005, resection), breast cancer (2009, L mastectomy), and lives in [facility] unit who is presenting for low blood pressure after dinner day of arrival. ED evaluation reveals no leukocytosis, H&H 9.4/30; CMP chloride 108, BUN/creatinine ratio 29.5, glucose 113, calcium 8.4, albumin 3.2; lactate 0.9; procalcitonin 0.25; TSH 0.938; UA positive for infection; CXR pending official read; EKG NSR 76 bpm.; Provided with 1L NSS, ceftriaxone 2 g IV in ED. #UTI/Hypotension Symptoms of low BP readings at [facility]. No history of pseudomonas. Unable to tell me if anything else is bothersome to her given her dementia. She was initially hypotensive upon arrival, received 1L NSS in ED. Not meeting SIRS criteria at admission. - CBC without leukocytosis; CMP grossly unremarkable; lactate + procal WNL - CBC am - UA positive for infection; pending cx - BioFire negative - IVF LR @ 100 mL/hr - Zofran IV prn N/V - Ceftriaxone 2g IV #Hypothyroidism- TSH 0.938; Levothyroxine - continue #Psych/dementia- Buspirone, escitalopram - continue #GERD- Famotidine, omeprazole - continue #Constipation- Docusate, MiraLAX prn - continue Dispo: Admit, med/sx VTE prophylaxis: Lovenox This document was dictated utilizing [employer]. Please excuse any grammatical errors that may be secondary to use of this software. Admission and Anticipated Discharge Date Admission Date: 03/30/2025 History of Present Illness Chief Complaint: Low BP Primary Care Provider: NO PCP 89-year-old female PMHx anemia, hyponatremia, dementia, Hernandez's esophagus, BPPV, GERD, hyperlipidemia, hypothyroidism, OP, colon cancer (2005, resection), breast cancer (2009, L mastectomy), and lives in [facility] unit who is presenting for low blood pressure after dinner day of arrival. Pt is unable to provide a history. She responds to stimuli, but words do not make sense. I did speak with her daughter, Zhou Cage, on the phone the night of admission at 0125 who states that her mother was "out of it" is not making sense when she is are at the hospital. States that she normally has abnormal symptoms "compared to everyone else" when she has bladder infections. Her mother was not complaining of anything prior to coming to the hospital. Patient's CODE STATUS was confirmed with her daughter Zhou via phone call. ED evaluation reveals no leukocytosis, H&H 9.4/30; CMP chloride 108, BUN/creatinine ratio 29.5, glucose 113, calcium 8.4, albumin 3.2; lactate 0.9; procalcitonin 0.25; TSH 0.938; UA positive for infection; CXR pending official read; EKG NSR 76 bpm.; Provided with 1L NSS, ceftriaxone 2 g IV in ED. Please see Dr. Moreira's attestation for adjustments/additions to treatment plan. Allergies Allergy/AdvReac Type Severity Reaction Status Date / Time shellfish derived Allergy Unknown Unknown Verified 03/30/25 01:00 oxycodone AdvReac Unknown N&V Verified 03/30/25 01:00 Home Medications Medication Instructions Recorded Confirmed Type escitalopram oxalate 5 mg tablet 7.5 mg PO DAILY 03/30/24 03/30/25 History famotidine 20 mg tablet 20 mg PO QAM 03/30/24 03/30/25 History docusate sodium 100 mg capsule 100 mg PO BID #14 caps 04/01/24 03/30/25 Rx polyethylene glycol 3350 17 gram 17 g PO DAILY #14 ea 04/01/24 03/30/25 Rx oral powder packet (Miralax) omeprazole 20 mg capsule,delayed 20 mg PO DAILY #30 caps 06/29/24 03/30/25 Rx release levothyroxine 75 mcg tablet 75 mcg PO DAILY #90 tabs 03/22/25 03/30/25 Rx acetaminophen 325 mg tablet 650 mg PO Q4 PRN Pain 03/30/25 03/30/25 History acetaminophen 325 mg tablet 650 mg PO Q4 PRN TEMP >=100 03/30/25 03/30/25 History buspirone 5 mg tablet 2.5 mg PO TID 03/30/25 03/30/25 History cholecalciferol (vitamin D3) 125 125 mcg PO DAILY 03/30/25 03/30/25 History mcg (5,000 unit) tablet ferrous sulfate 325 mg (65 mg 325 mg PO QAM 03/30/25 03/30/25 History iron) tablet Past Med/Surg History Problem List (Updated 03/30/25 @ 01:03 by Daxa Miller PA-C) Hypotension Anemia (Acute) Fever (Acute) Acute UTI (Acute) Vitamin D deficiency Abnormal finding on CT scan Right rib fracture (Acute ~03/29/24) Fractures of the posterior seventh, eighth, ninth ribs Right rib fracture (Acute 03/29/24) fractures of the posterior right seventh, eighth and ninth ribs from a fall Back contusion (Acute) Contusion of hip, right (Acute) Fall (Acute) Ulcerative colitis (Chronic) Thoracic back pain Seasonal allergies Myalgia and myositis Lesion of lip Joint pain, knee Impacted cerumen of both ears Hyponatremia Fatigue Anemia Routine health maintenance (Chronic) Encounter for pre-operative examination (Acute) Low back pain Memory impairment Rectal bleeding Cerumen impaction Upper extremity weakness Physical deconditioning Impaired mobility and ADLs Osteoarthritis of shoulders, bilateral Impingement syndrome of right shoulder Impingement syndrome, shoulder, left Medical History Dementia Arthritis Trouble swallowing Barretts esophagus Benign positional vertigo Chronic reflux esophagitis Hyperlipidemia Hypothyroidism Osteoporosis Colon cancer (~2004) HX 2005/HX RESECTION Breast cancer (~2008) HX 2009/LEFT MASTECTOMY Surgical History History of endoscopy History of colonoscopy History of blepharoplasty History of colon surgery Part of colon removed History of mastectomy LEFT History of foot surgery Family History Aunt Breast cancer Other No pertinent family history Denies family history of Ovarian cancer Prostate cancer Myocardial infarction Colorectal cancer Social History Smoking Status: Unknown if ever smoked Second Hand Exposure: No; Do You Dip or Chew Tobacco: No; Hx Alcohol Use: No Hx Substance Use: No Preferred Language: [place] Communication Ability: Impaired Communication Ability Comment: DAUGHTERZHOU DOES PAT PHONE INTERVIEW (POA)/PT HAS DEMENTIA Visual Impairment: Limited Hearing Ability: Normal Medical Office Receptionist Required: No Beliefs That Will Affect Care: None marital status: / Current Living Situation: Intermediate Current Living Situation Comment: Memory care unit at [facility] current occupational status: retired How many Children do You have: 3 Feels Safe at Home: Yes Childhood Exposure to Second-Hand Smoke: Yes Diet: regular caffeine: No during the past year weight has: remained stable Dental Care, Regularly: Yes Physical Activity Frequency: Daily Physical Activity Frequency Comment: Walking Seatbelt Use: always Sunscreen Use: Yes Assistive Devices: None Review of Systems Review of Systems: Unobtainable due to cognitive status (Dementia) Physical Exam Physical Exam: General: No acute distress Skin: Warm and dry Head: Normocephalic, atraumatic Eyes: PERRL, conjunctivae clear, sclera non-icteric ENT: External ear and ear canal without swelling; nose atraumatic; good dentition, tongue normal appearance, pharynx normal Neck: Supple, no LAD Cardio: RRR, no M/G/R, S1 and S2 normal Resp: No respiratory distress, Lungs CTA in all lobes bilaterally, no wheezes, rales, or rhonchi Abdomen: Soft, symmetric, nontender; No masses or hepatosplenomegaly; Bowel sounds normoactive MSK: No deformities; pulses palpable and equal; no edema. Neuro: Awake, alert; Sensation intact bilaterally; CN grossly intact Psych: Alert. Results & Data Results & Data Vital Signs (Past 12 Hours) Vital Signs Temp Pulse Pulse Resp BP BP Pulse Ox 03/30/25 00:30 82 16 98/59 L 93 03/30/25 00:00 88 16 96/62 L 97 03/29/25 23:30 83 16 100/54 L 93 03/29/25 23:00 80 16 104/58 L 96 03/29/25 22:36 74 20 102/61 93 03/29/25 22:30 37.3 C 03/29/25 22:15 37.3 C 03/29/25 22:15 95 03/29/25 22:05 75 03/29/25 22:05 36.7 C 77 16 96/60 L 97 O2 Del Method 03/30/25 00:30 Room Air 03/30/25 00:00 Room Air 03/29/25 23:30 Room Air 03/29/25 23:00 Room Air 03/29/25 22:36 Room Air 03/29/25 22:30 03/29/25 22:15 03/29/25 22:15 Room Air 03/29/25 22:05 03/29/25 22:05 Room Air Laboratory Results 03/29/25 23:59 Urine Culture - Pending Urine,Straight Cath 03/29/25 22:25 Aerobic Blood Culture - Pending Blood Anaerobic Blood Culture - Pending 03/29/25 22:20 Aerobic Blood Culture - Pending Blood Anaerobic Blood Culture - Pending 03/29/25 03/29/25 23:59 22:20 WBC 7.75 RBC 3.50 L Hgb 9.4 L Hct 30.0 L MCV 85.7 MCH 26.9 MCHC 31.3 L RDW Std Deviation 44.7 RDW Coeff of [place] 14.3 Plt Count 283 MPV 9.8 Immature Gran % (Auto) 0.3 Neut % (Auto) 59.7 Lymph % (Auto) 28.9 [place] % (Auto) 8.4 Eos % (Auto) 1.8 Baso % (Auto) 0.9 Neut # (Auto) 4.63 Lymph # (Auto) 2.24 [place] # (Auto) 0.65 H Eos # (Auto) 0.14 Baso # (Auto) 0.07 Immature Gran # (Auto) 0.02 Sodium 140 Potassium 3.7 Chloride 108 H Carbon Dioxide 26 Anion Gap 6 BUN 23 Creatinine 0.78 Est Cr Clr Drug Dosing Not Reportable eGFR 73.47 BUN/Creatinine Ratio 29.5 H Glucose 113 H Lactate 0.9 Calcium 8.4 L Magnesium 1.9 Total Bilirubin 0.3 Direct Bilirubin 0.1 AST 14 ALT 9 Alkaline Phosphatase 81 Troponin I High Sens 8.4 Total Protein 6.1 Albumin 3.2 L Procalcitonin 0.25 TSH 0.938 Urine Color Yellow Urine Appearance Cloudy A Urine pH 6.0 Ur Specific [place] 1.016 Urine Protein 1+ H Urine Glucose (UA) Negative Urine Ketones Negative Urine Blood 1+ H Urine Nitrite Positive A Urine Bilirubin Negative Urine Urobilinogen Negative Ur Leukocyte Esterase 3+ H Urine WBC (Auto) >50 H Urine RBC (Auto) 3-5 H U Hyaline Cast (Auto) 3-5 H U Epithel Cells (Auto) 0-2 Urine Bacteria (Auto) 4+ H Urine Comment Adenovirus (PCR) Not Detected B. pertussis DNA (PCR) Not Detected B.parapertussis DNA PCR Not Detected C. pneumoniae DNA (PCR) Not Detected Coronavirus OC43 (PCR) Not Detected Coronavirus HKU1 (PCR) Not Detected Coronavirus 229E (PCR) Not Detected SARS-CoV-2 (PCR) Not Detected Coronavirus NL63 (PCR) Not Detected Human Metapneumovir PCR Not Detected Influenza Type A (PCR) Not Detected Influenza Type B (PCR) Not Detected M. pneumoniae (PCR) Not Detected Parainfluenza 1 (PCR) Not Detected Parainfluenza 2 (PCR) Not Detected Parainfluenza 3 (PCR) Not Detected Parainfluenza 4 (PCR) Not Detected RSV (PCR) Not Detected Entero/Rhino (PCR) Not Detected Medications Administered 1L NSS Ceftriaxone 2 g IV ECG Additional Comments: NSR 76 bpm, TX 134, QRS 78, QT/QTc 422/474, PRT 26/34/36 Code Status & VTE Plan Code Status DNR/DNI Confirmed with daughter, Zhou Cage, on phone night of admission @ 0125 Supervising Physician Co-Signing Physician Notes Patient was seen and examined independently I discussed the case with John Paul Miller PA-C I reviewed pertinent past medical social family history and also the plan of care and agree with the plan of care. 69-year-old female with memory loss presents with concern for fever found to have low blood pressure and concern for urinary tract infection present on admission. She does not meet defined sepsis criteria she has a previous history of E. coli which is sensitive to cephalosporins but not to quinolones she cannot provide much history is slightly agitated on evaluation Physical exam finds her to be alert and fighting the exam not answering questions appropriately not being willing to follow commands although I think she could effusion a better state of mind her card exam is regular lungs are clear abdomen is with normal bowel sounds appears to be soft unknown if its uncomfortable she does not want me to examine her abdomen extremities are without edema She is not oriented to place or time but oriented to person Concern for urinary tract infection with metabolic encephalopathy present on admission cultures are being obtained she will continue on ceftriaxone For her low blood pressure she will be given additional IV fluids as she was volume resuscitated in the ER Any exceptions will be noted below PG Care Time/CCT Total # of Minutes Spent Total Time Spent with Patient: Total time spent is greater than 50% in coordination of care (as documented) at patient's floor/unit and/or counseling patient: Coding Level of Care Code 26174 INT INP/OBS CARE 3/75MIN Diagnoses Acute UTI N39.0 Hypotension I95.9
[2025-03-30] MEDS: cefTRIAXone SODIUM 2,000 MG/50 ML BAG IV STA (01:07)
[2025-03-30] MEDS: SODIUM CHLORIDE 0.9% 500 ML IV ONE (01:07)
[2025-03-30] MEDS ORDERED: MELATONIN 3 MG TAB PO PRN (02:15)
[2025-03-30] MEDS ORDERED: POLYETHYLENE (MIRALAX) 17 GM PACK PO PRN (02:15)
[2025-03-30] MEDS ORDERED: ONDANSETRON INJ 2 MG/ML 2 ML VIAL IV PRN (02:15)
--- NOTE | 2025-03-30 02:15 | XRay Report ---
Exam(s): XR CXR 1 VIEW EXAM: XR Chest, 1 View CLINICAL HISTORY: Reason for exam: Sepsis. TECHNIQUE: Frontal view of the chest. COMPARISON: Prior chest x-ray from April 13, 2024. FINDINGS: Lungs: Moderate to heavy peribronchial thickening of the central and lower lobe bronchi with increased interstitial opacities in lower lobes. No consolidation. Pleural space: Unremarkable. No pneumothorax. Heart: Mild cardiomegaly. Mediastinum: Unremarkable. Normal mediastinal contour. Bones/joints: Unremarkable. No acute fracture. IMPRESSION: Bronchitis, which may be of infectious or inflammatory etiologies. No consolidation or pleural effusion. Cardiomegaly without evidence of CHF. Electronically signed by: Joan Cooper MD 03/30/25 02:14 AM
[2025-03-30] MEDS: LACTATED RINGER'S 1,000 ML IV STA (02:25)
[2025-03-30 07:05] LABS: Hematocrit (blood only) 29.5 % (37.0-47.0); Hemoglobin 9.4 g/dl (12.0-16.0); Mean Corpuscular Hemoglobin 27.6 pg (25.0-34.0); Mean Corpuscular Hgb Conc 31.9 g/dL (32.0-36.0); Mean Corpuscular Volume 86.8 fL (80.0-100.0); Mean Platelet Volume 9.8 fL (9.4-12.4); Platelet Count 247 K/uL (130-400); RDW Coefficient of Variation 14.3 % (11.5-14.5); RDW Standard Deviation 45.2 fL (36.4-46.3); White Blood Count 6.86 K/ul (4.8-10.8)
[2025-03-30 07:25] LABS: BUN Creatinine Ratio 26.2 (10-20); Calcium 8.1 mg/dl (8.6-10.3); Creatinine Clr Calc Pharmacy 54.9 ml/min; Potassium 3.7 mmol/L (3.5-5.1)
--- NOTE | 2025-03-30 08:09 | Hospitalist Progress Note ---
Date of Service March 30, 2025 Assessment & Plan (1) Hypotension: (2) Acute UTI: Plan 89-year-old female PMHx anemia, hyponatremia, dementia, Hernandez's esophagus, BPPV, GERD, hyperlipidemia, hypothyroidism, OP, colon cancer (2004, resection), breast cancer (2009, L mastectomy), and lives in [facility] unit who is presenting for low blood pressure after dinner day of arrival admitted for monitoring of her Blood Pressure and UTI #UTI - UA positive for UTI -Urine culture pending - IVF LR @ 100 mL/hr upto 500 ml - Zofran IV prn N/V - Ceftriaxone 2g IV (day 2 ) #Acute Hypotension -Hypotensive on arrival -BP improved after fluid resuscitation in the ER -BP 98/61 -Will monitor her BP -If continues to maintain BP, hopefully home tomorrow #Hypothyroidism- TSH 0.938; Levothyroxine - continue #Psych/dementia- Buspirone, escitalopram - continue #GERD- Famotidine, omeprazole - continue #Constipation- Docusate, MiraLAX prn - continue Dispo: Admit, med/sx VTE prophylaxis: Lovenox Admission and Anticipated Discharge Date Admission Date: March 30, 2025 Supervising Physician Co-Signing Physician Notes I personally examined the patient and verified pham points of history and exam, discussed case, and agree with decision making and plan documented by Dr. Steen. 89-year-old female on admission for hypotension being treated for acute UTI. Patient is poor historian, she denies chest pain or shortness of breath, does endorse some dysuria. Currently on ceftriaxone, urine culture pending, will transition to oral antibiotics w/sensitivites. Anticipate back to memory care. Updated daughter Kandy by phone. Subjective Patient seems to be in her baseline. Severely demented. Couldnot gather much history from her. Review of Systems Review of Systems: as per HPI Physical Exam Constitutional: WD/WN, vitals as above well developed; no acute distress Eyes: PERRL, conjunctivae normal, anicteric sclerae ENMT: external ear and nose normal, oropharynx normal Ears: no hearing impairment Neck: trachea midline, no thyromegaly trachea midline Respiratory: normal respiratory effort, lungs clear to auscultation normal respiratory effort and + respiratory distress; no labored breathing and no retractions Auscultation: lungs clear to auscultation bilaterally Cardiovascular: RRR, no murmur, no edema Rate/Rhythm: regular rate and regular rhythm Chest (Breasts): normal inspection/palpation of breasts Chest: normal inspection of chest Results & Data Results & Data Vital Signs (Past 12 Hours) Vital Signs Temp Pulse Pulse Pulse Resp BP BP 03/30/25 07:33 36.4 C L 80 17 121/80 03/30/25 02:29 03/30/25 02:29 36.3 C L 78 20 113/76 03/30/25 01:30 83 16 119/80 03/30/25 01:00 79 16 99/64 L 03/30/25 00:30 82 16 98/59 L 03/30/25 00:00 88 16 96/62 L 03/29/25 23:30 83 16 100/54 L 03/29/25 23:00 80 16 104/58 L 03/29/25 22:36 74 20 102/61 03/29/25 22:30 37.3 C 03/29/25 22:15 37.3 C 03/29/25 22:15 03/29/25 22:05 75 03/29/25 22:05 36.7 C 77 16 96/60 L Pulse Ox O2 Del Method 03/30/25 07:33 99 Room Air 03/30/25 02:29 Room Air 03/30/25 02:29 98 Room Air 03/30/25 01:30 95 Room Air 03/30/25 01:00 96 Room Air 03/30/25 00:30 93 Room Air 03/30/25 00:00 97 Room Air 03/29/25 23:30 93 Room Air 03/29/25 23:00 96 Room Air 03/29/25 22:36 93 Room Air 03/29/25 22:30 03/29/25 22:15 03/29/25 22:15 95 Room Air 03/29/25 22:05 03/29/25 22:05 97 Room Air Resident Activity Tracking Resident Involvement: Resident Care Provided Care Provided: Adult Hospital Medicine
--- NOTE | 2025-03-30 16:50 | Electrocardiogram Report ---
Test Reason : Blood Pressure : */* mmHG Vent. Rate : 76 BPM Atrial Rate : 76 BPM P-R Int : 134 ms QRS Dur : 78 ms QT Int : 422 ms P-R-T Axes : 26 34 36 degrees QTcB Int : 474 ms Normal sinus rhythm Normal ECG When compared with ECG of 13-Apr-2024 09:29, No significant change was found Confirmed by Arcenio Zaragoza ([id number]) on 03/30/2025 4:49:56 PM Referred By: REFERRED SELF Confirmed By: Arcenio Zaragoza
[2025-03-30 19:55] VITALS: RESP 16
[2025-03-30] MEDS: cefTRIAXone SODIUM 2,000 MG/50 ML BAG IV SCH (21:29)
[2025-03-31 07:13] VITALS: BP 117/73; PULSE 71; TEMP 98.1; O2SAT 98
--- NOTE | 2025-03-31 07:53 | Hospitalist Progress Note ---
Date of Service March 31, 2025 Assessment & Plan Plan 89-year-old female PMHx anemia, hyponatremia, dementia, Hernandez's esophagus, BPPV, GERD, hyperlipidemia, hypothyroidism, OP, colon cancer (2004, resection), breast cancer (2009, L mastectomy), and lives in [facility] unit who is presenting for low blood pressure after dinner day of arrival admitted for monitoring of her Blood Pressure and UTI #UTI - UA positive for UTI -Urine culture pending - IVF LR @ 100 mL/hr upto 500 ml - Zofran IV prn N/V - Ceftriaxone 2g IV (day 2 ) #Acute Hypotension -Hypotensive on arrival -BP improved after fluid resuscitation in the ER -BP 98/61 -Will monitor her BP -If continues to maintain BP, hopefully home tomorrow #Hypothyroidism- TSH 0.938; Levothyroxine - continue #Psych/dementia- Buspirone, escitalopram - continue #GERD- Famotidine, omeprazole - continue #Constipation- Docusate, MiraLAX prn - continue Dispo: Admit, med/sx VTE prophylaxis: Lovenox Admission and Anticipated Discharge Date Admission Date: March 30, 2025 Subjective Patient seems to be in her baseline. Severely demented. Couldnot gather much history from her. Review of Systems Review of Systems: as per HPI Physical Exam Constitutional: WD/WN, vitals as above well developed; no acute distress Eyes: PERRL, conjunctivae normal, anicteric sclerae ENMT: external ear and nose normal, oropharynx normal Ears: no hearing impairment Neck: trachea midline, no thyromegaly trachea midline Respiratory: normal respiratory effort, lungs clear to auscultation normal respiratory effort and + respiratory distress; no labored breathing and no retractions Auscultation: lungs clear to auscultation bilaterally Cardiovascular: RRR, no murmur, no edema Rate/Rhythm: regular rate and regular rhythm Chest (Breasts): normal inspection/palpation of breasts Chest: normal inspection of chest Results & Data Results & Data Vital Signs (Past 12 Hours) Vital Signs Temp Pulse Resp BP Pulse Ox O2 Del Method 03/31/25 07:12 36.7 C 71 16 117/73 98 Room Air 03/30/25 19:55 36.8 C 82 16 113/71 97 Room Air
--- NOTE | 2025-03-31 16:35 | Discharge Summary ---
Date of Service March 31, 2025 Admission HPI Per Admitting Provider 89-year-old female PMHx anemia, hyponatremia, dementia, Hernandez's esophagus, BPPV, GERD, hyperlipidemia, hypothyroidism, OP, colon cancer (2004, resection), breast cancer (2009, L mastectomy), and lives in [facility] who is presenting for low blood pressure after dinner day of arrival. Pt is unable to provide a history. She responds to stimuli, but words do not make sense. I did speak with her daughter, Kandy Cage, on the phone the night of admission at 0125 who states that her mother was "out of it" is not making sense when she is are at the hospital. States that she normally has abnormal symptoms "compared to everyone else" when she has bladder infections. Her mother was not complaining of anything prior to coming to the hospital. Patient's CODE STATUS was confirmed with her daughter Kandy via phone call. ED evaluation reveals no leukocytosis, H&H 9.4/30; CMP chloride 108, BUN/creatinine ratio 29.5, glucose 113, calcium 8.4, albumin 3.2; lactate 0.9; procalcitonin 0.25; TSH 0.938; UA positive for infection; CXR pending official read; EKG NSR 76 bpm.; Provided with 1L NSS, ceftriaxone 2 g IV in ED. Please see Dr. Moreira's attestation for adjustments/additions to treatment plan. Admission Exam Per Admitting Provider Physical Exam: General: No acute distress Skin: Warm and dry Head: Normocephalic, atraumatic Eyes: PERRL, conjunctivae clear, sclera non-icteric ENT: External ear and ear canal without swelling; nose atraumatic; good dentition, tongue normal appearance, pharynx normal Neck: Supple, no LAD Cardio: RRR, no M/G/R, S1 and S2 normal Resp: No respiratory distress, Lungs CTA in all lobes bilaterally, no wheezes, rales, or rhonchi Abdomen: Soft, symmetric, nontender; No masses or hepatosplenomegaly; Bowel sounds normoactive MSK: No deformities; pulses palpable and equal; no edema. Neuro: Awake, alert; Sensation intact bilaterally; CN grossly intact Psych: Alert. Principal Diagnosis 1. Urinary Tract Infection(UTI) 2. Acute Hypotension(Resolved) Discharge Exam Constitutional WD/WN, vitals as above well developed; no acute distress Eyes PERRL, conjunctivae normal, anicteric sclerae ENMT external ear and nose normal, oropharynx normal Ears: no hearing impairment Neck trachea midline, no thyromegaly trachea midline Respiratory normal respiratory effort, lungs clear to auscultation normal respiratory effort and + respiratory distress; no labored breathing and no retractions Auscultation: lungs clear to auscultation bilaterally Cardiovascular RRR, no murmur, no edema Rate/Rhythm: regular rate and regular rhythm Chest (Breasts) normal inspection/palpation of breasts Chest: normal inspection of chest Discharge Data Allergies Allergy/AdvReac Type Severity Reaction Status Date / Time shellfish derived Allergy Unknown Unknown Verified 03/30/25 01:00 oxycodone AdvReac Unknown N&V Verified 03/30/25 01:00 Consultations 03/30/25 01:46 ED Decision to Admit Stat Hospital Course (1) Hypotension: (2) Acute UTI: Plan 89-year-old female PMHx anemia, hyponatremia, dementia, Hernandez's esophagus, BPPV, GERD, hyperlipidemia, hypothyroidism, OP, colon cancer (2004, resection), breast cancer (2008, L mastectomy), and lives in [facility] who is presenting for low blood pressure after dinner day of arrival admitted for monitoring of her Blood Pressure and UTI #UTI - UA positive for UTI - Preliminary Urine culture positive for EColi. Final culture and C/S reports pending - Zofran IV prn N/V - Ceftriaxone 2g IV (day 2 ) -Switch Ceftriaxone to Cefpodoxime on discharge -Follow up with PCP within next week #Acute Hypotension -Hypotensive on arrival -BP improved after fluid resuscitation in the ER -BP normal on discharge #Hypothyroidism- TSH 0.938; Levothyroxine - continue #Psych/dementia- Buspirone, escitalopram - continue #GERD- Famotidine, omeprazole - continue #Constipation- Docusate, MiraLAX prn - continue Dispo: Admit, med/sx VTE prophylaxis: Lovenox Total Time Total Time Spent Total Time Spent (In Minutes): See attending attestation Discharge Plan Discharge Items Patient Disposition: Personal [facility] Reason For Visit: UTI Discharge Diagnosis: 1. Urinary Tract Infection(UTI) 2. Acute Hypotension(Resolved) Condition on Discharge: Good Activity: Resume your previous activity Non-emergency contact: Primary Care Provider Call non-emergency contact if: you have any medication questions and your symptoms worsen Follow-up/Referrals: PCP,NO [Primary Care Provider] - Diet: Regular Addtl Attending Provider Instructions: You were admitted to the hospital for Acute Hypotension and Urinary Tract Infection. You were treated with IV antibiotics and Fluids. Your Blood Pressure improved after fluid resuscitation and stable today to go back. We have switched IV antibiotics to oral. Please continue to take oral antibiotics for your UTI. Please make sure you drink plenty of water. A discharge summary will be sent to your primary care physician to ensure continuity of care. Please bring this discharge summary with you to your next office appointment so that your provider can review it at that time. Follow-up appointments: Make a follow-up appointment with your PCP within the next week. It is very important that you follow up with them shortly after discharge from the hospital. Keep all your follow-up appointments as already scheduled. If you cannot make an appointment, notify your provider. Medications: Your medication list has been reviewed and reconciled upon discharge to ensure accuracy and continuity of care. An updated list of all your medications is included with your hospital discharge paperwork. Please review this list closely, and make note of any changes. We sent a new medication called Cefpodoxime to your pharmacy. Take Cefpodoxime PO BID for 3 days starting tomorrow. If you have any issues filling these prescriptions, please call [phone] and ask to leave a message for Dr. Suzan Steen Take your medications as instructed; do not skip a dose of your medicines. Make sure all of your doctors know every medicine you are taking (including [id number]-[id number] medicines, vitamins, and supplements). Call your primary care provider before taking any new medicines (including overthe- counter medicines, vitamins, and supplements), because some of these may interact with your current medications, or may make your symptoms worse. Tell your primary care provider if you cannot afford your medications. CONTACT YOUR PRIMARY CARE PROVIDER if you experience any of the following: worsening of your symptoms Difficulty following your treatment plan, or difficulty taking medications CALL 911 OR GO TO THE EMERGENCY DEPARTMENT if you experience any of the following: Sudden, severe abdominal pain or nausea/vomiting Severe chest pain, or chest pain that radiates (moves) to your jaw or arm Sudden, severe shortness of breath or difficulty breathing Thank you for allowing us to participate in your care. . Pending Studies at Discharge: No Stand-Alone Forms: My Historic Futures, Smoking Cessation Skilled Items Patient informed of condition?: Yes DNR: Yes Discharge Level of Care: Skilled Communicable Disease: No Discharge Prognosis: Improving Lines: None Urinary Catheter: No Medications and DC Order Prescriptions: New cefpodoxime 100 mg tablet 100 mg PO BID 3 Days Qty: 6 0RF Rx Instructions: must administer with a meal/food Continued omeprazole 20 mg capsule,delayed release(DR/EC) 20 mg PO DAILY Qty: 30 5RF levothyroxine 75 mcg tablet 75 mcg PO DAILY Qty: 90 1RF famotidine 20 mg tablet 20 mg PO QAM escitalopram oxalate 5 mg tablet 7.5 mg PO DAILY docusate sodium 100 mg Capsule 100 mg PO BID Qty: 14 0RF polyethylene glycol 3350 [Miralax] 17 gram Powder In Packet 17 g PO DAILY Qty: 14 0RF buspirone 5 mg tablet 2.5 mg PO TID ferrous sulfate 325 mg (65 mg iron) Tablet 325 mg PO QAM cholecalciferol (vitamin D3) 125 mcg (5,000 unit) tablet 125 mcg PO DAILY acetaminophen 325 mg Tablet 650 mg PO Q4 MDD 3G PRN (Reason: TEMP >=100) acetaminophen 325 mg Tablet 650 mg PO Q4 MDD 3G PRN (Reason: Pain) Discharge Orders: Discharge Order (Routine); Ordered 03/31/25 Ordered By: Suzan Steen Admission Data Admit Date/Time: 03/30/25 01:16 Attending Provider: Janet Brar Admit Provider: Rigo Moreira Primary Care Provider: PCP,NO Other Providers: Rigo Moreira; Zoë Rodriguez [facility] Other Interventions: Discharge Summary Assessment (RN) Last Done: 03/31/25 13:27 Supervising Physician Co-Signing Physician Notes I personally examined the patient and verified pham points of history and exam, discussed case, and agree with decision making and plan documented by Dr. Steen. 89-year-old female on admission for hypotension being treated for acute UTI. Patient pleasantly confused appears comfortable, lungs clear b/l to auscultation, regular rate and rhythm, no acute distress. Patient was initially placed on ceftriaxone, urine culture positive for E. coli, sensitivities still pending on discharge and will be checked in AM tomorrow. Patient discharged on cefpodoxime to complete therapy. Vital signs are stable. Patient recommended to follow-up with PCP early next week. She will return to [facility] unit. Daughter to provide ride. Total attending time 28 minutes Resident Activity Tracking Resident Involvement: Resident Care Provided Care Provided: Adult Hospital Medicine
--- NOTE | 2025-04-01 08:01 | Coding Query ---
To promote full compliance with coding requirements relating to patient care, provider participation is requested in all cases of physician general internal medicine uncertainty. Please assist us with the question(s) below: Coding Question(s): The diagnosis below was documented in the H&P, by the supervising physician, then subsequently fell off all further documentation. Please indicate if it is still a possible diagnosis or ruled out. Physician's Response(s): METABOLIC ENCEPHALOPATHY ( ) Diagnosed ( X ) Ruled out ( ) Other (please specify) MTDD
== END 2025-03-31 14:40 | disposition home or self-care (01) ==
LOC: ED 21:59 → 3N 03-30 01:16 → SUATTDRO 03-30 01:16 → INTOOBSV 03-30 01:16 → 3N 03-30 01:45